=== PATIENT | female | born 1945 | race Caucasian/White ===

== ENCOUNTER 2017-07-01 10:17 | Day surgery (SDC) | payer MEDICARE, SELFPAY ==
[2017-07-01 10:35] VITALS: BP 126/67; PULSE 62; RESP 16; TEMP 36.9; O2SAT 98; BMI 30.2
[2017-07-01] MEDS: Tetracaine 0.5% Ophthalmic Bottle 1 DRP (11:58)
--- NOTE | 2017-07-01 12:33 | PCM.DC.CATCL ---
Allergies/Adverse Reactions: Allergies No Known Allergies Allergy (Verified 06/24/17 11:06) Medications to take at Discharge No Known/Unobtainable [No Known Home Medications] 08/11/16 Cataract Instructions: -Take a pain reliever such as Tylenol, Aspirin or Ibuprofen if needed for eye aching or pain. If this is not enough relief for you pain, call your doctor (or the doctor biodiesel division manager), even at night. -You are scheduled for a follow-up appointment at [facility] the day after surgery. You should have someone drive you. -Transient pain and irritation are due to the incision that was made at the time of surgery and do not indicate any trouble. Our office numbers are . If there is no answer, or if it is after our normal business hours, call your surgeon. My home phone number is: Dr. Ana Maria Powers INSTRUCTIONS FOLLOWING TOPICAL ANESTHETIC CATARACT SURGERY Protect operated eye with glasses or metal shield at all times. Instill one drop of Polytrim (or other antibiotic drop), one drop of Prednisolone and one drop of Acular in the operated eye four times a day (breakfast, lunch, dinner, and bedtime) until the doctor tells you to quit or decrease them. Wait 3-5 minutes between each drop. Please begin these immediately upon arriving at home. if your surgery is in t he afternoon, try to use the drops at least three more times the day of surgery and again the following morning before your appointment. INSTRUCTIONS FOLLOWING RETROBULBAR CATARACT SURGERY Keep the eye patch and metal shield on until you see your surgeon the day after surgery - these will be removed in the office that day. Do not drive while the patch is on your eye. You will be instructed about the use of drops for the operated eye at that visit. Primary Care Physician: Care Physician,No Primary [Primary Care Provider] -
[2017-07-01 12:34] VITALS: BP 126/67; BP 136/63; PULSE 58; RESP 16; TEMP 35.9; O2SAT 100
--- NOTE | 2017-07-01 12:34 | PCM.OP.BLANK ---
Operative Report Date of Procedure: 07/01/17 Preoperative Diagnosis: Cataract Left Eye Postoperative Diagnosis: Same Procedure: Cataract Extraction via phacoemulsification with intraocular lens implant Left Eye Anesthesia: Mac/topical Complications: none Estimated Blood Loss: none Indications for procedure: This is a 72 year old female with history of worsening vision in the left eye secondary to cataract. After discussion of the risks, benefits, and alternatives procedure the patient agreed to proceed with cataract extraction of the left eye. Description of procedure: The patient was brought to the operative room where a time out was performed prior to the start of the procedure. Anesthesia team induced light sedation, and the eye was prepped and draped in the normal sterile fashion for eye surgery. A doreen blade knife was used to create a paracentesis incision. Preservative free lidocaine followed by viscoelastic was introduced into the anterior chamber. A keratome was used to create a clear corneal biplanar incision at the temporal limbus. A cystotome was used to begin the capsulorhexis, which was completed in a continuous curvilinear fashion using the capsulorhexis forceps. BSS on a damon cannula was used to hydrate beneath the lens capsule until the lens was noted to be freely mobile in the capsular bag. Phacoemulsification was used to remove the lens in a divide and conquer technique. Irrigation and aspiration was used to remove the remaining cortical material. The capsular bag was inflated with provisc, and a tecnis PCBOO 20.0 diopter lens was placed in the capsular bag and adjusted using a galo hook. The remaining viscoelastic material was removed. The wounds were hydrated and noted to be watertight with the use of a wexcell sponge. The patient was taken to the recovery room in a stable condition with instructions to follow up in the clinic for the scheduled postoperative visit.
[2017-07-01 12:40] VITALS: BP 121/77; BP 126/67; PULSE 53; RESP 16; O2SAT 96
[2017-07-01 12:45] VITALS: BP 126/67; BP 129/61; PULSE 50; RESP 16; O2SAT 96
[2017-07-01 12:50] VITALS: BP 126/67; BP 131/61; PULSE 50; RESP 16; TEMP 36.1; O2SAT 100
[2017-07-01 13:25] VITALS: BP 126/67
== END 2017-07-01 13:30 | disposition home or self-care (01) ==
LOC: SDC 10:20 → AC 10:22
PROVIDERS: Visit Provider Ophthalmology
PROC: (CPT 66984; principal; 2017-07-01 11:50)
DX: H25.812 Combined forms of age-related cataract, left eye (principal); F17.200 Nicotine dependence, unspecified, uncomplicated
CPT/HCPCS: 66984

== ENCOUNTER 2018-06-08 09:10 | Emergency (ER) | payer MEDICARE, SELFPAY ==
[2018-06-08 09:11] VITALS: BP 156/113; PULSE 72; RESP 18; TEMP 37.2; O2SAT 99; BMI 29.4
--- NOTE | 2018-06-08 09:25 | CT_ITS ---
STUDY: CT BRAIN WITHOUT CONTRAST REASON FOR EXAM: Female, 73 years old. Head injury due to a fall. Nausea and headaches. RADIATION DOSAGE (If Supplied By Facility): CTDIvol = ( 44.99 ) mGy, DLP = ( 779.24 ) mGycm TECHNIQUE: Transaxial CT imaging of the brain was performed without administration of intravenous contrast material. Individualized dose optimization techniques were used for this CT. COMPARISON: None. FINDINGS: Small scalp hematoma overlying the medial right occipital parietal bone posteriorly. Normal calvarium. Normal size ventricles and extra-axial spaces for the patient's age. There are areas of decreased attenuation within the white matter tracts of the supratentorial brain, consistent with microvascular disease changes. Normal basal ganglia and thalami. Normal brainstem. Normal cerebellum. There is no intracranial hemorrhage. There are no findings of an acute ischemic infarction. Atherosclerotic calcification of the cavernous portions of the internal carotid arteries bilaterally. Normal visualized paranasal sinuses. CT/Brain/Head without Contrast IMPRESSION: Chronic involutional changes of the brain. Small scalp hematoma overlying the medial right posterior occipital parietal bone. Electronically Signed: Dionisio Rubi MD at 10:01 EST , Service support ,
--- NOTE | 2018-06-08 09:25 | CT_ITS ---
STUDY: CT CERVICAL SPINE WITHOUT CONTRAST REASON FOR EXAM: Female, 73 years old. History of fall. Headaches. Nausea. RADIATION DOSAGE (If Supplied By Facility): CTDIvol = ( 19.23 ) mGy, DLP = ( 349.40 ) mGycm TECHNIQUE: High resolution transaxial imaging was performed without contrast material. Sagittal and coronal images were reconstructed. Individualized dose optimization techniques were used for this CT. COMPARISON: None FINDINGS: Normal craniovertebral junction. There are degenerative changes of the anterior atlantoaxial articulation. Normal odontoid process. Normal cervical lordosis. Diffuse osteopenia with multiple small rounded lucencies throughout the vertebra and base of the skull. Multiple myeloma should be ruled out. C2-3: Normal endplates. Normal disc height and morphology. Normal central canal and intervertebral neuroforamina. C3-4: Facet joint osteoarthritis and hypertrophy worse on the left side. Uncovertebral arthrosis. Mild to moderate degree of left neural foraminal stenosis. C4-5: Mild degree of disc space narrowing. Spondylosis. Facet joint osteoarthritis and hypertrophy worse on the left side with uncovertebral arthrosis. Bilateral neural foraminal stenosis worse on the left side. C5-6: Mild loss of height of the C5 vertebrae. Marked degree of disc space narrowing. Spondylosis. Uncovertebral arthrosis. Moderate degree of bilateral neural foraminal stenosis is worse on the left side. C6-7: Moderate degree of disc space narrowing. Spondylosis. Uncovertebral arthrosis. Bilateral neural foraminal stenosis. Normal visualized soft tissue structures. CT/Spine Cervical without Contras IMPRESSION: Multilevel degenerative changes, as described above. Diffuse osteopenia with rounded lucencies in multiple vertebrae as described. Multiple myeloma should be ruled out. Loss of height of the C5 vertebrae. Electronically Signed: Dionisio Rubi MD at 10:06 EST , Service support ,
[2018-06-08 10:23] VITALS: O2SAT 98
--- NOTE | 2018-06-08 11:18 | ED.VISSUMM ---
- ER Visit Summary Date of Service: 06/08/18 Chief Complaint: [Head injury] History of Present Illness: The patient is a 73 F [presents to the emergency department with complaint of a head injury that occurred 5 days ago when she slipped on the ice and hit her head on the ground. Patient denies loss of consciousness but states that she saw stars. Patient since that time is had some visual changes 3 days ago she decided to go see the connie scratcher who looked at her eyes and did not note anything significant. Patient also had some intermittent trouble with balance and has had some intermittent nausea. Patient overall just has not felt well. Patient was advised by her connie scratcher to be seen in the emergency department. Patient was recommended to have a CT scan of her brain. Patient also has some discomfort to her neck.] Physical Examination: [HEENT-PERRLA, EOMI. Cranial nerves II through XII grossly intact. TMs clear. Mucous membranes moist. No adenopathy. Patient has a healing posterior right scalp hematoma no bony step-offs noted. C-spine some mild diffuse tenderness on palpation and paraspinal muscular tenderness on palpation bilaterally patient also some tenderness over the sternocleidomastoid bilaterally. Cardiovascular-regular rate and rhythm without murmur or ectopy Lungs-clear to auscultation, chest wall stable without crepitus or subcu emphysema Abdomen-normoactive bowel sounds, soft, nontender, no rebound or rigidity, no peritoneal signs. Neuro rslh-hudzzs-axwi and heel holden testing within normal limits, negative Romberg, negative pronator, fundi benign Extremities-intact ?4, normal range of motion, normal pulses, atraumatic] Test Results: [CT scan of the brain without contrast was unremarkable other than a scalp hematoma. CT scan of the cervical spine showed degenerative disc disease and some lucencies in the vertebrae concerning for possible multiple myeloma.] Emergency Department Course and Treatment: [] Treatment Plan: [Patient case and findings of CT reports were discussed with patient she is understanding of the concern for possibility of multiple myeloma related to the findings on the CT of the cervical spine. Patient will follow up with primary care physician regarding these findings to have further investigation.] Disposition: [Discharged home in stable condition] Impression: [Closed head injury/concussion Cervical strain] This note was generated with Kimbiaation software. It may contain incorrect words, spelling, and punctuation that were not noted in review of the chart prior to signing ED Disposition - Plan for ED Patient: Referrals: Care Physician,No Primary [Primary Care Provider] -
--- NOTE | 2018-06-08 11:21 | ED.DCSUM_ITS ---
- ER Visit Summary Date of Service: 06/08/18 Chief Complaint: [Head injury] History of Present Illness: The patient is a 73 F [presents to the emergency department with complaint of a head injury that occurred 5 days ago when she slipped on the ice and hit her head on the ground. Patient denies loss of con sciousness but states that she saw stars. Patient since that time is had some visual changes 3 days ago she decided to go see the purchaser automotive parts who looked at her eyes and did not note anything significant. Patient also had some intermittent trouble with balance and has had some intermittent nausea. Patient overall just has not felt well. Patient was advised by her purchaser automotive parts to be seen in the emergency department. Patient was recommended to have a CT scan of her brain. Patient also has some discomfort to her neck.] Physical Examination: [HEENT-PERRLACHRISMI. Cranial nerves II through XII grossly intact. TMs clear. Mucous membranes moist. No adenopathy. Patient has a healing posterior right scalp hematoma no bony step-offs noted. C-spine some mild diffuse tenderness on palpation and paraspinal muscular tenderness on palpation bilaterally patient also some tenderness over the sternocleidomastoid bilaterally. Cardiovascular-regular rate and rhythm without murmur or ectopy Lungs-clear to auscultation, chest wall stable without crepitus or subcu emphysema Abdomen-normoactive bowel sounds, soft, nontender, no rebound or rigidity, no peritoneal signs. Neuro tldz-rwzibe-iaiu and heel holden testing within normal limits, negative Romberg, negative pronator, fundi benign Extremities-intact ?4, normal range of motion, normal pulses, atraumatic] Test Results: [CT scan of the brain without contrast was unremarkable other than a scalp hematoma. CT scan of the cervical spine showed degenerative disc disease and some lucencies in the vertebrae concerning for possible multiple myeloma.] Emergency Department Course and Treatment: [] Treatment Plan: [Patient case and findings of CT reports were discussed with patient she is understanding of the concern for possibility of multiple myeloma related to the findings on the CT of the cervical spine. Patient will follow up with primary care physician regarding these findings to have further investigation.] Disposition: [Discharged home in stable condition] Impression: [Closed head injury/concussion Cervical strain] This note was generated with Kabbeeation software. It may contain incorrect words, spelling, and punctuation that were not noted in review of the chart prior to signing ED Disposition - Plan for ED Patient: Referrals: Care Physician,No Primary [Primary Care Provider] -
--- NOTE | 2018-06-08 11:21 | ED.DEP ---
ED Disposition - Plan for ED Patient: Instructions: ED Mechanical Fall, ED Concussion, ED Sprain Strain Neck Referrals: Care Physician,No Primary [Primary Care Provider] - Yanira Lucas MD [STAFF PHYSICIAN] - 3-5 Days
[2018-06-08 11:31] VITALS: BP 165/82; PULSE 71; RESP 18; O2SAT 98
== END 2018-06-08 11:32 | disposition home or self-care (01) ==
LOC: ED 10:14
PROVIDERS: Emergency Provider Emergency Medicine
DX: S06.0X0A Concussion without loss of consciousness, initial encounter (principal); S16.1XXA Strain of muscle, fascia and tendon at neck level, initial encounter; W00.0XXA Fall on same level due to ice and snow, initial encounter; Y93.9 Activity, unspecified; Y92.9 Unspecified place or not applicable; Z72.0 Tobacco use
CPT/HCPCS: 70450; 72125; 99282

== ENCOUNTER 2020-07-13 08:29 | Outpatient (RCR) | payer MEDICARE, SELFPAY ==
[2020-07-09] MEDS: COVID-19 VACC, MRNA(PFIZER)/PF 30 MCG/0.3 ML SYRINGE IM (13:25)
[2020-07-30] MEDS: COVID-19 VACC, MRNA(PFIZER)/PF 30 MCG/0.3 ML SYRINGE IM (13:20)
== END 2020-10-08 23:59 ==
LOC: IMMUN 08:29
PROVIDERS: Referring Provider Family Medicine; Visit Provider Family Medicine
DX: Z23 Encounter for immunization (principal)
CPT/HCPCS: 0001A; 0002A; 91300

== ENCOUNTER → 2022-09-03 | Outpatient (CLI) | payer MEDICARE, SELFPAY ==
--- NOTE | 2022-09-03 10:28 | MRI_ITS ---
INDICATION: Vision loss right eye worse than left, optic nerve edema. EXAMINATION: MR Brain and Face Neck Orbit WO/W Contrast TECHNIQUE: Multiplanar and multisequence MR images of the brain and orbits were obtained without and with gadolinium. IV Contrast Dosage and Agent: 16 mL Clariscan. COMPARISON: None. FINDINGS: BRAIN PARENCHYMA: No acute parenchymal hemorrhage. No evidence of acute infarct. No intracranial mass or mass effect. No vasogenic edema. There is preservation of the sal/white matter interface. Normal sella turcica, pituitary gland, infundibular stalk, optic chiasm and hypothalamus. Normal midline anatomy. Multiple white matter lesions in the periventricular and subcortical white matter. Posterior fossa structures are unremarkable. No abnormal brain parenchymal enhancement. Brain parenchymal White matter lesions do not enhance. The internal auditory canals are well visualized and patent. No mass identified. CSF SPACES: No acute extra-axial hemorrhage. No hydrocephalus. Basal cisterns are patent. No abnormal extra-axial fluid collection. No abnormal extra-axial enhancement identified. VASCULAR SYSTEM: Normal flow voids in the major intracranial circulation. Intracranial vasculature enhances normally. CALVARIUM, SKULL BASE, PARANASAL SINUSES AND MASTOID AIR CELLS: Clear. No expansile changes. ORBITS: Bilateral cataract repair. No mass. Increased T2 signal intensity within the right optic nerve associated with mild volume loss/prominence of the CSF sheath. This is associated with subtle increased enhancement. Subtle T2 hyperintensity changes within the left optic nerve with normal appearance of the optic nerve sheath. There is a short segment of increased enhancement near the globe. MRI/Orbit Face Neck W/WO Contrast IMPRESSION: Findings suggest optic neuritis, asymmetric on the right, consistent with the clinical presentation. Electronically Signed: Colby Tejada MD at 17:20 EDT ,
[2022-09-03 11:01] LABS: CREATININE FINGERSTICK < 0.9 mg/dL (0.55-1.02); EGFR FINGERSTICK > 60.0000 mL/min (>60)
== END | disposition home or self-care (01) ==
PROVIDERS: PCP Internal Medicine; Referring Provider Ophthalmology; Visit Provider Ophthalmology
DX: H47.10 Unspecified papilledema (principal); X58.XXXA Exposure to other specified factors, initial encounter
CPT/HCPCS: 70543; A9575

== ENCOUNTER 2023-06-30 11:34 | Outpatient (CLI) | payer MEDICARE, SELFPAY ==
[2023-06-30 11:59] VITALS: BP 124/64; PULSE 57; RESP 16; TEMP 36.6; O2SAT 99; BMI 27.6
--- NOTE | 2023-06-30 12:05 | RAD_ITS ---
PROCEDURE: Fluoroscopic guided Lumbar Puncture. DATE: June 30, 2023. CLINICAL INDICATION: Unspecified optic neuritis. PHYSICIAN: Dionisio Rubi M.D. MEDICATIONS: 1% lidocaine administered subcutaneously for local anesthesia. ACCESS SITE: Lower posterior back. NEEDLE: 22-gauge spinal needle. SPECIMEN: Approximately 10 mL clear]CSF fluid. FLUOROSCOPY TIME (if supplied): (5:02) minutes/seconds. 135.65 mgy COMPLICATIONS: None immediate. The risks, benefits, and alternatives to the procedure were explained to the patient. The specific risks of bleeding, infection, and neurovascular injury were detailed and accepted. Witnessed informed consent was obtained. The patient was placed on the fluoroscopic table in the prone position. The level for needle entry was determined and marked. The overlying skin was cleaned and prepped in the usual sterile fashion. 2% lidocaine was administered subcutaneously for local anesthesia. Under fluoroscopic guidance a 22-gauge spinal needle was advanced. The thecal sac was entered at the L3- L4 vertebral level. The inner stylet was removed. There was spontaneous flow of clear CSF fluid. The patient was placed in a reversed Trendelenburg position. Approximately 10 mL of cerebrospinal fluid was collected using gravity. The specimen was collected and submitted to the laboratory for further evaluation. The needle was withdrawn,. Hemostasis was achieved and a sterile dressing placed. The patient tolerated the procedure well without any immediate complications. The patient was placed supine with head elevated and returned to the floor in stable condition. RAD/Dx Lumbar Puncture w/IMG Guide IMPRESSION: Successful fluoroscopic-guided lumbar puncture. Electronically Signed: Dionisio Rubi MD at 13:33 EST ,
[2023-06-30] MEDS: Lidocaine 2% (5ml sdv) 5 ML VIAL.MPF INFILT (12:20)
[2023-06-30 13:09] VITALS: BP 150/70; PULSE 60; RESP 16; O2SAT 98
--- NOTE | 2023-06-30 13:21 | CYSPIN_PTH ---
PATIENT: LIDA DEXTER LOC: RAD U#:[id number] AGE/SX: 78/F ROOM: RE06/30/[address]: Dr. Abram Thomas MD : 1945 BED: DIS: 06/30/2023 SPEC #: [id number] RECD: 07/01/23 07:11 STATUS: GRANT RESe #: [id number] GABINO: 06/30/23 13:[address]: Abram Thomas DEPT: CYTOLOGY RECD BY: Lindsay Navarro ENTERED: 07/01/23 07:12 SP TYPE: CYSPIN FL OTHR DR: Dr. Yanira Lucas MD Tissues: Cerebrospinal Fluid Procedures: Pap Stain (control) Special Stain Group II Cytospin Fluid HEADER OPERATION: Not noted PRE-OP DIAGNOSIS: Unspecified optic neuritis TISSUE SUBMITTED: Cerebrospinal fluid for cytology DIAGNOSIS CYTOLOGY Cerebrospinal fluid for cytology (cytospin): Negative for malignant cells. AM:anna 07/01/2023 CYTOLOGY STUDY Slides are reviewed. CYTOLOGY GROSS Received is 3 ml of clear colorless fluid labeled with the patient's name and and designated per the requisition as CSF. Submitted for cytology preparation. / anna 06/30/2023 TC:5 CPT: 51612
[2023-06-30 13:33] LABS: Cytology, Body Fluid / CSF SEE PATHOLOGY REPORT
[2023-06-30 13:53] VITALS: BP 143/72; PULSE 56; RESP 16; O2SAT 99
[2023-06-30 14:02] LABS: Absolute Lymphocyte Count 2.86 X10^3/uL (0.83-4.51); Absolute Neutrophil Count 4.5 X10^3/uL (2.0-7.7); Basophil# 0.04 X10^3/uL; Basophil% 0.5 % (0-1); Eosinophil# 0.02 X10^3/uL; Eosinophils% 0.3 % (0-5); Hematocrit 36.5 % (37-47); Hemoglobin 11.5 g/dL (12.0-15.0); Lymphocyte # 2.86 X10^3/ul (0.83-4.51); Lymphocyte % 37.3 % (19-41); Mean Corp Hgb Conc 31.5 g/dL (32-36); Mean Corpuscular Hgb 28.8 pg (27.0-32.0); Mean Corpuscular Volume 91.5 fL (81-99); Mean Platelet Vol. 8.8 fl (6.2-12.0); Monocyte# 0.25 X10^3/uL; Monocyte% 3.3 % (0-10); NRBC Flagged by Analyzer 0 % (0-5); Neutrophil # 4.47 X10^3/uL (2.7-7.7); Neutrophil % 58.2 % (47-70); Platelet Count 307 K/mm3 (150-450); RBC Distribution Width SD 43.7 fl (35.1-43.9); Red Blood Count 3.99 M/mm3 (4.2-5.4); White Blood Count 7.7 K/mm3 (4.4-11.0)
[2023-06-30 14:07] LABS: Auto B Fluid Analyzer BKGD Ct COUNTS W/IN LIMITS (W/IN LIMITS)
[2023-06-30 14:08] LABS: Appearance CSF (character) CLEAR (Clear); CSF Color COLORLESS (Colorless); Tested Tube # 4
[2023-06-30 14:22] LABS: RBC Count, Spinal Fluid 1 /mm-3 (None seen)
[2023-06-30 14:23] LABS: White Count, CSF 0 /mm-3 (0 - 5)
[2023-06-30 14:37] LABS: Vitamin B12 380 pg/mL (211-911)
[2023-06-30 14:55] LABS: AST(SGOT) 12 U/L (15-37); Alanine Aminotransfer ALT/SGPT 20 U/L (13-56); Albumin, Serum 3.4 g/dL (3.2-5.0); Alkaline Phosphatase 68 U/L (45-117); Anion Gap 2 (5-15); BUN 12 mg/dL (7-18); BUN/Creat Ratio 19.5 RATIO (10-20); Calcium,Total 9.1 mg/dL (8.5-10.1); Chloride 107 mmol/L (98-107); Creatinine, Serum 0.61 mg/dL (0.55-1.02); EST Glomerular Filtration Rate 100 mL/min (>60); Est Glom Filt Rate - Afr Amer 121 mL/min (>60); Estimated Creatinine Clearance 59.34 ml/min; Globulin 3.3 g/dL (2.2-4.2); Glucose 96 mg/dL (74-106); Potassium 3.4 mmol/L (3.5-5.1); Protein, Total 6.7 g/dL (6.4-8.2); Sodium Level 140 mmol/L (136-145); Thyroid Stim Hormone (TSH) 1.39 uIU/mL (0.358-3.74)
[2023-06-30 14:57] LABS: Glucose Spinal Fluid 67 mg/dL (40-75)
[2023-06-30 15:05] LABS: Body Fluid QC Type(s) BF1QC
[2023-06-30 15:13] LABS: Eosinophils,CSF 0 % (None seen); Lymphocytes,CSF 0 % (40 - 80); Monocytes,CSF 0 % (15 - 45); Neutrophils,CSF 0 % (0 - 6)
[2023-07-02 10:07] LABS: Pathologist Review Reviewed
[2023-07-06 00:06] LABS: CSF Albumin 16 mg/dL (10-46); CSF IgG 1.9 mg/dL (0.0-6.7); CSF IgG Index 0.6 (0.0-0.7); CSF:Serum Albumin Index 4 (0-8); IgG Serum 817 mg/dL (586-1602); IgG/Alb Ratio, CSF 0.12 (0.00-0.25); VDRL Cerebrospinal Fluid Non Reactive (Non Rea:<1:1); Vitamin B1, Thiamine 67.8 nmol/L (66.5-200.0)
== END 2023-06-30 23:59 | disposition home or self-care (01) ==
PROVIDERS: PCP Internal Medicine; Referring Provider Psychiatry & Neurology Neurology; Visit Provider Psychiatry & Neurology Neurology
DX: H46.9 Unspecified optic neuritis (principal); R26.9 Unspecified abnormalities of gait and mobility; I10 Essential (primary) hypertension; E55.9 Vitamin D deficiency, unspecified
CPT/HCPCS: 62328; 80053; 82040; 82042; 82607; 82652; 82746; 82784; 82945; 83873; 83916; 84157; 84425; 84443; 85025; 86592; 87070; 87205; 88108; 88313; 89050; 89051

== ENCOUNTER → 2023-07-07 | Outpatient (CLI) | payer MEDICARE, SELFPAY ==
--- OUTSIDE RECORDS SUMMARY | 2023-07-07 13:55 | XMS RPT_ITS | CCD ---
Author Name Unknown Address [address] [place] [address] Organization [facility] Care Team Providers Care Ski Lift Attendant Name Role Phone Tej COPE, Yanira Primary Care Provider TEJ, YANIRA Primary Care Unavailable COLBY BRIGGS Attending Unavailable TEJ, YANIRA Primary Care Unavailable COLBY BRIGGS Referring Unavailable GANTA, YANIRA Primary Care Unavailable MASCICOLBY Referring Unavailable GANTA, YANIRA Primary Care Unavailable GANTA, [facility] Primary Care Unavailable ELY AU Attending Unavailable GANWOJCIECH, [facility] Primary Care Unavailable NUBIA ABDUL Referring Unavailable NUBIA ABDUL Attending Unavailable GANTA, [facility] Primary Care Unavailable TEODORA YORK Referring Unavailable GANTA, [facility] Primary Care Unavailable Yanira Burnham MD Primary Care Provider Medications Current Medications Medication Drug Class(es) Dates Sig (Normalized) Sig (Original) eszopiclone 2 mg oral tablet (3 sources) Start: 02-16-2022 End: 03-18-2022 take 1 tablet by mouth every 30 days at bedtime as needed eszopiclone (LUNESTA) 2 mg Indications: Insomnia, unspecified type Take 1 tablet by mouth at bedtime as needed (insomnia) for up to 30 days. 30 tablet 0 02/16/2022 03/18/2022 Active Completed/Discontinued Medications Medication Drug Class(es) Dates Sig (Normalized) Sig (Original) >Zippered Compression Knee High 30-40 mm custom (20 sources) Start: 12-16-2018 >Zippered Compression Knee High 30-40 mm custom Indications: Chronic venous insufficiency CUSTOM MEASURE FOR KNEE HIGH JER COMPRESSION STOCKINGS, 30-40 MM, WITH ZIPPERS PLEASE. IF UNABLE, PLEASE REFER TO [facility]. DX: EDEMA 1 Each 0 12/16/2018 Active Problems Active Problems Problem Classification Problem Date Documented Da te Episodic/Chronic Conditions associated with dizziness or vertigo (1 source) Dizziness; Translations: [Dizziness and giddiness] Episodic Disorders of lipid metabolism (20 sources) Mixed hyperlipidemia; Translations: [Mixed hyperlipidemia] Onset: 08-05-2020 08-05-2020 Chronic Essential hypertension (8 sources) Essential hypertension; Translations: [Essential (primary) hypertension] Chronic Genitourinary symptoms and ill-defined conditions (1 source) Abnormal urinalysis; Translations: [Unspecified abnormal findings in urine] Episodic Immunizations and screening for infectious disease (1 source) Needs influenza immunization; Translations: [Encounter for immunization] Episodic Inflammation; infection of eye (except that caused by tuberculosis or sexually transmitteddisease) (2 sources) Optic neuritis; Translations: [Unspecified optic neuritis] Onset: 09-15-2022 12-24-2022 Chronic Malaise and fatigue (1 source) Fatigue; Translations: [Other fatigue] Episodic Nutritional deficiencies (20 sources) Vitamin D deficiency; Translations: [Vitamin D deficiency, unspecified] Onset: 08-05-2020 08-05-2020 Chronic Other bone disease and musculoskeletal deformities (2 sources) Lytic lesion of bone on X-ray; Translations: [Disorder of bone, unspecified] Episodic Other connective tissue disease (1 source) Dysfunction of posterior tibial tendon; Translations: [Posterior tibial tendinitis, unspecified leg] 06-29-2023 Episodic Other eye disorders (1 source) Unspecified papilledema; 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] Onset: 09-15-2022 Chronic Other non-traumatic joint disorders (2 sources) Acute ankle pain; Translations: [Pain in right ankle and joints of right foot] 12-21-2022 Episodic Other non-traumatic joint disorders (1 source) Ankle pain; Translations: [Pain in right ankle and joints of right foot] 06-11-2023 Episodic Residual codes; unclassified (1 source) Insomnia; Translations: [Insomnia, unspecified] Episodic Past or Other Problems Problem Classification Problem Date Documented Da te Episodic/Chronic Diabetes mellitus without complication (20 sources) Prediabetes; Translations: [Prediabetes] Onset: 08-05-2020 08-05-2020 Episodic Other bone disease and musculoskeletal deformities (1 source) Disorder of bone, unspecified; Translations: [Lytic bone lesions on xray] Onset: 09-29-2022 Episodic Other diseases of veins and lymphatics (20 sources) Peripheral venous insufficiency; Translations: [Venous insufficiency (chronic) (peripheral)] Onset: 08-05-2020 08-05-2020 Episodic Other non-traumatic joint disorders (1 source) Pain in right ankle and joints of right foot; Translations: [Acute right ankle pain] Onset: 12-21-2022 Episodic Residual codes; unclassified (20 sources) Tobacco user; Translations: [Tobacco use] Onset: 08-05-2020 08-05-2020 Episodic Results Test Name Value Interpretation Reference Range Facil ity Vital Signs Date Time Vital Sign Value Performing Clinician Delvis farris 06-11-2023 11:01-0500 Body height 162.6 cm Ely Denbow PA-C Work Phone: [facility] 06-11-2023 11:01-0500 Body temperature 97.3 [degF] Ely Denbow PA-C Work Phone: [facility] 06-11-2023 11:01-0500 Body weight 78.02 kg Ely Denbow PA-C Work Phone: [facility] 06-11-2023 11:01-0500 Diastolic blood pressure 70 mm[Hg] Ely Denbow PA-C Work Phone: [facility] 06-11-2023 11:01-0500 Heart rate 80 /min Ely Denbow PA-C Work Phone: [facility] 06-11-2023 11:01-0500 Respiratory rate 12 /min Ely Denbow PA-C Work Phone: [facility] 06-11-2023 11:01-0500 SaO2% (BldA) [Mass fraction] 99 % Ely Denbow PA-C Work Phone: [facility] 06-11-2023 11:01-0500 Systolic blood pressure 132 mm[Hg] Ely Denbow PA-C Work Phone: [facility] 12-21-2022 12:37-0400 Body weight 80.74 kg Nubia Older PSYCHIATRIC NURSE PRACTITIONER.IMAGING NURSE Work Phone: [facility] 12-21-2022 12:37-0400 Diastolic blood pressure 70 mm[Hg] Nubia Older PSYCHIATRIC NURSE PRACTITIONER.IMAGING NURSE Work Phone: [facility] 12-21-2022 12:37-0400 Heart rate 74 /min Nubia Older PSYCHIATRIC NURSE PRACTITIONER.IMAGING NURSE Work Phone: [facility] 12-21-2022 12:37-0400 Respiratory rate 16 /min Nubia Older PSYCHIATRIC NURSE PRACTITIONER.IMAGING NURSE Work Phone: [facility] 12-21-2022 12:37-0400 SaO2% (BldA) [Mass fraction] 97 % Nubia Older PSYCHIATRIC NURSE PRACTITIONER.IMAGING NURSE Work Phone: [facility] 12-21-2022 12:37-0400 Systolic blood pressure 118 mm[Hg] Nubia Older PSYCHIATRIC NURSE PRACTITIONER.IMAGING NURSE Work Phone: [facility] 10-14-2022 10:10-0400 Body height 165 cm Colby Masci DO Work Phone: [facility] 10-14-2022 10:10-0400 Body temperature 97.9 [degF] Colby Masci DO Work Phone: [facility] 10-14-2022 10:10-0400 Body weight 81.42 kg Colby Masci DO Work Phone: [facility] 10-14-2022 10:10-0400 Diastolic blood pressure 75 mm[Hg] Colby Masci DO Work Phone: [facility] 10-14-2022 10:10-0400 Heart rate 73 /min Colby Masci DO Work Phone: [facility] 10-14-2022 10:10-0400 SaO2% (BldA) [Mass fraction] 96 % Colby Masci DO Work Phone: [facility] 10-14-2022 10:10-0400 Systolic blood pressure 130 mm[Hg] Colby Masci DO Work Phone: [facility] 03-16-2022 14:06-0500 Body height 165.1 cm Yanira Burnham MD Work Phone: [facility] 03-16-2022 14:06-0500 Body temperature 98.4 [degF] Yanira Burnham MD Work Phone: [facility] 03-16-2022 14:06-0500 Body weight 81.65 kg Yanira Burnham MD Work Phone: [facility] 03-16-2022 14:06-0500 Diastolic blood pressure 56 mm[Hg] Yanira Burnham MD Work Phone: [facility] 03-16-2022 14:06-0500 Heart rate 83 /min Yanira Burnham MD Work Phone: [facility] 03-16-2022 14:06-0500 Respiratory rate 12 /min Yanira Burnham MD Work Phone: [facility] 03-16-2022 14:06-0500 SaO2% (BldA) [Mass fraction] 97 % Yanira Burnham MD Work Phone: [facility] 03-16-2022 14:06-0500 Systolic blood pressure 110 mm[Hg] Yanira Burnham MD Work Phone: [facility] 02-16-2022 13:16-0400 Body weight 81.65 kg Yanira Burnham MD Work Phone: [facility] 02-16-2022 13:16-0400 Diastolic blood pressure 82 mm[Hg] Yanira Burnham MD Work Phone: [facility] 02-16-2022 13:16-0400 Heart rate 60 /min Yanira Burnham MD Work Phone: [facility] 02-16-2022 13:16-0400 SaO2% (BldA) [Mass fraction] 98 % Yanira Burnham MD Work Phone: [facility] 02-16-2022 13:16-0400 Systolic blood pressure 142 mm[Hg] Yanira Burnham MD Work Phone: [facility] 12-16-2021 13:34-0400 Diastolic blood pressure 79 mm[Hg] Mi Nurse Work Phone: [facility] 12-16-2021 13:34-0400 Heart rate 75 /min Mi Nurse Work Phone: [facility] 12-16-2021 13:34-0400 Systolic blood pressure 128 mm[Hg] Mi Nurse Work Phone: [facility] 12-01-2021 13:08-0400 Body weight 80.29 kg Nubia Older PSYCHIATRIC NURSE PRACTITIONER.IMAGING NURSE Work Phone: [facility] 12-01-2021 13:08-0400 Diastolic blood pressure 82 mm[Hg] Nubia Older PSYCHIATRIC NURSE PRACTITIONER.IMAGING NURSE Work Phone: [facility] 12-01-2021 13:08-0400 Heart rate 66 /min Nubia Older PSYCHIATRIC NURSE PRACTITIONER.IMAGING NURSE Work Phone: [facility] 12-01-2021 13:08-0400 Respiratory rate 16 /min Nubia Older PSYCHIATRIC NURSE PRACTITIONER.IMAGING NURSE Work Phone: [facility] 12-01-2021 13:08-0400 Systolic blood pressure 144 mm[Hg] Nubia Older PSYCHIATRIC NURSE PRACTITIONER.IMAGING NURSE Work Phone: [facility] 11-04-2021 15:13-0400 Diastolic blood pressure 70 mm[Hg] Mi Nurse Work Phone: [facility] 11-04-2021 15:13-0400 Heart rate 72 /min Mi Nurse Work Phone: [facility] 11-04-2021 15:13-0400 Systolic blood pressure 128 mm[Hg] Mi Nurse Work Phone: [facility] 10-17-2021 13:55-0400 Body weight 79.83 kg Nubia Older PSYCHIATRIC NURSE PRACTITIONER.IMAGING NURSE Work Phone: [facility] 10-17-2021 13:55-0400 Diastolic blood pressure 80 mm[Hg] Nubia Older PSYCHIATRIC NURSE PRACTITIONER.IMAGING NURSE Work Phone: [facility] 10-17-2021 13:55-0400 Heart rate 66 /min Nubia Older PSYCHIATRIC NURSE PRACTITIONER.IMAGING NURSE Work Phone: [facility] 10-17-2021 13:55-0400 Respiratory rate 16 /min Nubia Abdul PSYCHIATRIC NURSE PRACTITIONER.IMAGING NURSE Work Phone: [facility] 10-17-2021 13:55-0400 Systolic blood pressure 144 mm[Hg] Nubia Abdul PSYCHIATRIC NURSE PRACTITIONER.IMAGING NURSE Work Phone: [facility] Encounters Encounter Date Encounter Type Care Provider Facility Start: 06-29-2023 End: 06-29-2023 Patient encounter procedure Carlo Correa Work Phone: Podiatry Procedures Date Procedure Procedure Detail Performing Clinician Start: 02-16-2022 PFIZER-BIONTECH COVI D-19 BIVALENT BOOSTER VACCINE, AGE 12+ YR Yanira Burnham MD Work Phone: Start: 02-16-2022 INFLUENZA SEASONAL QUADRIVALENT HIGH DOSE AGE 65+ Yanira Burnham MD Work Phone: Plan of Treatment Date Care Activity Detail Author Start: 09-29-2025 DIABETES SCREEN DIABETES SCREEN [facility] Start: 09-29-2025 Diabetes Screening Diabetes Screening [facility] Start: 03-13-2025 DIABETES SCREEN DIABETES SCREEN [facility] Start: 11-18-2024 DIABETES SCREEN DIABETES SCREEN [facility] Start: 06-11-2024 Annual PCP Team Chronic Disease Visit Annual PCP Team Chronic Disease Visit [facility] Start: 03-10-2024 DIABETES SCREEN DIABETES SCREEN [facility] Start: 12-22-2023 ANNUAL PCP TEAM CHRONIC DISEASE VISIT ANNUAL PCP TEAM CHRONIC DISEASE VISIT [facility] Start: 12-22-2023 BP CONTROLLED (<130/80) BP CONTROLLED (<130/80) [facility] Start: 06-11-2023 End: 09-10-2023 CBC W Auto Differential panel - Blood CBC + DIFF Lab Routine Primary hypertension Prediabetes Expected: 06/11/2023, Expires: 09/10/[address] [facility] Work Phone: Immunizations Immunization Date Immunization Notes Care Provider Fa [email or web address] 02-16-2022 COVID-19 booster vaccine, age 12+ yr, bivalent (PFIZER-BIONTECH) Yanira Burnham MD Work Phone: [facility] 02-16-2022 influenza, high-dose , quadrivalent vaccine (FLUZONE HIGH DOSE QUADRIVALENT) Yanira Burnham MD Work Phone: [facility] 02-16-2022 influenza virus vaccine, unspecified formulation Ely Au PA-C Work Phone: [facility] 08-12-2021 COVID-19 vaccine, ag e 12+ yr (PFIZER-BIONTECH - OBRIEN TOP) Yanira Burnham MD Work Phone: [facility] Work Phone: 04-15-2021 influenza, high-dose , quadrivalent vaccine (FLUZONE HIGH DOSE QUADRIVALENT) Yanira Burnham MD Work Phone: [facility] 07-30-2020 COVID-19 vaccine, ag e 12+ yr (PFIZER-BIONTECH - PURPLE TOP) Yanira Burnham MD Work Phone: [facility] Work Phone: 07-09-2020 COVID-19 vaccine, ag e 12+ yr (PFIZER-BIONTECH - PURPLE TOP) Yanira Burnham MD Work Phone: [facility] Work Phone: Payers Date Payer Category Payer Medicare [id number] 2018 Unknown [facility] [employer] [facility] [id number] 2018-Present [phone] [address] [place] [address] [facility] [place] [id number] 2018 Unknown [id number] Social History Date Type Detail Facility Start: 09-17-2018 End: 06-29-2023 Tobacco smoking status TXIS Smokes tobacco daily [facility] Work Phone: History of tobacco use Cigarette Smoker [facility] Work Phone: Start: 09-17-2018 End: 10-14-2022 Cigarettes smoked current (pack per day) - Reported 0.5 [facility] Work Phone: Start: 09-17-2018 End: 06-29-2023 Tobacco use and exposure Smokeless tobacco non-user [facility] Work Phone: Start: 08-12-2021 End: 06-29-2023 Alcohol intake Current drinker of alcohol (finding) [facility] Start: 09-17-2018 History SDOH Alcohol Comment once a week to every other week [facility] Start: 04-11-2019 End: 12-16-2021 Tobacco Comment Pt has been smoking on & off x 30 years. [facility] Start: 1945 Sex Assigned At Not on file [facility] Start: 08-02-2021 End: 03-16-2022 Exposure to SARS-CoV-2 (event) Not sure [facility] Work Phone: Start: 10-07-2021 End: 10-17-2021 Exposure to SARS-CoV-2 (event) Unable to assess [facility] Start: 02-16-2022 End: 10-14-2022 Tobacco use panel [facility] Work Phone: Adult Depression Screening Assessment 2 [facility] Work Phone: Start: 06-29-2023 Tobacco Comment Pt has been sm oking on & off x 30 years.06/29/33- Down to 3-4 a day [facility] Clinical Notes 08-15-2021 to 06-29-2023 Patient InstructionsCarlo Correa - 06/29/2023 11:22 AM Humera Dong RN - 06/29/2023 10:50 AM Ely Pereyra PA-C - 06/11/2023 11:19 AM ESTPatient Instructions Note Date & Type Note Facility 06-29-2023 Instructions Carlo Correa - 06/29/2023 11:30 AM EST Powerstep Original Full length. Can purchase at [employer] and boots,shoes and more here in [place], [employer] in [place] or [place]. Also can find in [place] in [facility]. Powersteps can also be purchased online, starting around $45.00 If you have a metatarsal or dancer pad for your feet apply the pad directly to the insole so you can interchange between your shoes. Find a shoe with a removable insole and take this out and replace with your powerstep insole. Always bring powersteps with you when shopping for shoes so that you can make sure that everything fits well together Recommend asics, new balance or hoka shoes that lace up combined with inserts documented in this encounter [facility] 06-29-2023 History of Present illness Narrative Images from the original note were not included. Consultation requested by Dr. Au for an opinion regarding right ankle pain. My final recommendations will be communicated back to the requesting physician by way of shared Medical record or letter to requesting physician via US mail. Initial Podiatric Office Visit: Chief Complaint: This 78 year old female who presents with chief complaint:right ankle pain HPI Patient presents to clinic for evaluation of right ankle. Patient has right ankle pain that has been present for nearly one year No history of injury. Patient reports pain along the medial ankle. She has treated with ibuprofen and ice and rest and that has helped. She states the pain is better since taking ibuprofen but she still has a burning ache at times. PAIN EVALUATION 06/29/2023 1058 Pain Level: 6 Pain Location: Ankle-Right Description: Sharp;Burning gnawing Frequency: Intermittent Intervention/Comfort measure: Relaxation;Reposition;Medication Hemoglobin A1C (%) Date Value 03/13/2022 5.8 11/18/2021 5.7 03/10/2021 5.5 07/29/2020 5.8 PCP: Yanira Burnham MD PAST MEDICAL HISTORY Diagnosis Date Cataract Closed head injury 06/08/2018 Concussion 06/08/2018 Current Outpatient Medications Medication Sig cholecalciferol (VITAMIN D-3) 50 mcg (2,000 unit) tablet Take 1 tablet by mouth once daily. losartan (COZAAR) 50 mg tablet take 1 tablet by mouth every day hydroCHLOROthiazide 12.5 mg capsule Take 1 capsule by mouth once daily. rosuvastatin (CRESTOR) 10 mg tablet Take 1 tablet by mouth once daily. calcium carbonate (CALTRATE) 600 mg calcium (1,500 mg) tab Take 600 mg by mouth once daily. >Zippered Compression Knee High 30-40 mm custom CUSTOM MEASURE FOR KNEE HIGH JER COMPRESSION STOCKINGS, 30-40 MM, WITH ZIPPERS PLEASE. IF UNABLE, PLEASE REFER TO [facility]. DX: EDEMA celecoxib (CELEBREX) 200 mg capsule Take 1 capsule by mouth once daily. (Patient not taking: Reported on 06/29/2023) No current facility-administered medications for this visit. ALLERGIES No Known Allergies PAST SURGICAL HISTORY Procedure Laterality Date APPENDECTOMY FAMILY HISTORY Problem Relation Age of Onset Kidney Disease Mother dialysis Breast Cancer Mother Thyroid Mother other (Other) Sister half sister Social History Tobacco Use Smoking status: Every Day Packs/day: .25 Types: Cigarettes Smokeless tobacco: Never Tobacco comments: Pt has been smoking on & off x 30 years. 06/29/33- Down to 3-4 a day Vaping Use Vaping Use: Never used Substance Use Topics Alcohol use: Yes Comment: once a week to every other week Drug use: Never REVIEW OF SYSTEMS GENERAL: Negative for Malaise, significant weight loss, fever RESPIRATORY: Negative for cough, wheezing and shortness of breath CARDIOVASCULAR: Negative for chest pain, leg swelling and palpitations GI: Negative for abdominal discomfort, blood in stools or black stools and change in bowel habits : Negative for dysuria, frequency and incontinence MUSCULOSKELETAL: Negative for joint pain or swelling, back pain, and muscle pain. SKIN: Negative for lesions, rash, and itching. HEMATOLOGY/LYMPHOLOGY Negative for prolonged bleeding, bruising easily, and swollen nodes. ENDOCRINE: Negative for cold or heat intolerance, polyuria, polydipsia and goiter. NEURO: negative Physical Exam: Constitutional: Pt is a well developed 78 year old female who is alert, oriented and cooperative Eyes: Following during examination. No redness or drainage. Respiratory: RR normal and nonlabored. Even breathing. No evidence of distress or shortness of breath. Psychology: Patient is engaged during conversation. Normal affect and mood. Does not appear depressed or anxious during encounter. Vascular: Dorsalis pedis and posterior tibial pulses palpable as b/l Capillary Fill time < 5 seconds to digits 1-5 b/l Skin temperature warm to warm proximal to distal b/l Hair growth present to digits Neurological: intact light touch/epicritic sensation b/l intact protective sensation no significant neurological deficits Dermatological: Nails 1-5 b/l appear normal. Webspaces clean and dry 1-4 b/l. Skin appears well hydrated and supple. good color, texture, turgor. No open lesions present. No callosities present. Musculoskeletal/Orthopaedic: Patient has pain to palpation of right medial ankle along posterior tibial tendon Patient unable to perform single or double heel rise Foot type is pronated structurally AJ ROM is full with knee extended and flexed 1st MPJ is full when loaded and no pain or crepitus are noted with ROM. MTJ, STJ are full and free of pain and crepitus. +5/5 muscle strength dorsiflexion, plantarflexion, inversion, eversion b/l Radiographs: 3 views right ankle reviewed June 29, 2023: I have personally reviewed and interpreted these XR myself: no acute fracture ASSESSMENT: (M76.561) Posterior tibial tendon dysfunction (primary encounter diagnosis) PLAN: 1. History and physical examination performed. 2. XR reviewed with patient and interpreted today 3. Discussed pain in right ankle. Suspect flatfoot deformity related to posterior tibial tendon dysfunction 4. Discussed conservative options not limited to more supportive shoes, inserts, afo, boot vs surgery. 5. Will try new shoes that provide better support and will try powerstep inserts. Offered afo but she was not keen on this idea at first. Will try inserts. Carlo Correa DPM Podiatry [address] [facility] [address] Dept: [phone] Dept AMB ROOMING INTAKE FLOWSHEET DATA Pain Pain Level: 6 Pain Location: Ankle-Right Description: Sharp, Burning (gnawing) Frequency: Intermittent Intervention/Comfort measure: Relaxation, Reposition, Medication Patient presents with: Right Ankle - New, Pain Patient presents for right ankle pain that began last August. XR done 12/21/22. Denies injury. States that elevation and ibuprofen help short term. Patient states that it subsided for a time and then she went on a trip where she was on her feet a lot and it has been painful consistently since. Started taking tumeric 5 days ago and that has helped some. documented in this encounter [facility] 06-11-2023 Note HNO ID: [id number] Author: ELY AU PA-C Service: ? Author Type: Physician Protection Officer Type: Progress Notes Filed: 06/11/2023 12:10 Note Text: CC: Patient presents with: F/U 6 months: c/o right ankle pain since x 1year, elevated BP HPI Vanita Gutierrez is a 78 year old female who presents today for R ankle discomfort and elevated BP. Wanted to address these issues before seeing Dr. Thomas (neurology) 06/22 for initial evaluation of optic neuritis/possible MS. LV was with Nubia Abdul CNP on 12/21/22. From prior HPI: Right ankle pain and slight edema starting suddenly a few months ago. Pain is intermittent and varies in intensity. Is described as an aching with occasional sharp pain. Elevating ankle and ibuprofen help but only for short term. Takes ibuprofen every other day. Denies injury, weakness, falls, numbness, or tingling. New as of today: At that time, she put her on an IBU regimen for a few days which seemed to help. At this point in time, R ankle pain is like a burning and gnawing is very limiting- diminished ROM and is hindering her from her normal routine. Issue started in August and was intermittent at first, but seems to be worse at this time. XR was performed in 12/23 and didn't reveal anything significant. HTN: Home BP logs reveal numbers being higher 140s-150/high 80s-low 90s. REVIEW OF SYSTEMS See HPI All other systems negative. PAST MEDICAL HISTORY Diagnosis Date Cataract Closed head injury 06/08/2018 Concussion 06/08/2018 PAST SURGICAL HISTORY Procedure Laterality Date APPENDECTOMY ALLERGIES Patient has no known allergies. MEDICATIONS losartan (COZAAR) 50 mg tablet take 1 tablet by mouth every day hydroCHLOROthiazide 12.5 mg capsule Take 1 capsule by mouth once daily. rosuvastatin (CRESTOR) 10 mg tablet Take 1 tablet by mouth once daily. calcium carbonate (CALTRATE) 600 mg calcium (1,500 mg) tab Take 600 mg by mouth once daily. coenzyme Q10 (COQ-10) 30 mg capsule Take 1 capsule by mouth once daily. (Patient taking differently: Take 30 mg by mouth twice daily.) >Zippered Compression Knee High 30-40 mm custom CUSTOM MEASURE FOR KNEE HIGH JER COMPRESSION STOCKINGS, 30-40 MM, WITH ZIPPERS PLEASE. IF UNABLE, PLEASE REFER TO [facility] AT [facility]. DX: EDEMA FAMILY HISTORY Problem Relation Age of Onset Kidney Disease Mother dialysis Breast Cancer Mother Thyroid Mother other (Other) Sister half sister Social History Tobacco Use Smoking status: Every Day Packs/day: .5 Types: Cigarettes Smokeless tobacco: Never Tobacco comments: Pt has been smoking on AND off x 30 years. Vaping Use Vaping Use: Never used Substance Use Topics Alcohol use: Yes Comment: once a week to every other week Drug use: Never PHYSICAL EXAM BP 132/70 (BP Site: Left Arm, BP Position: Sitting, BP Cuff Size: Large Adult) Pulse 80 Temp 36.3 ?C (97.3 ?F) Resp 12 Ht 162.6 cm (5' 4 ) Wt 78 kg (172 lb) SpO2 99% BMI 29.52 kg/m? General Appearance: well appearing, in no acute distress, alert Psych: mood and affect broad and appropriate Skin: Skin color, texture, turgor normal for age Lungs: Lungs clear to auscultation. No wheezing, rhonchi, rales. Heart: RRR without murmur, gallop, or rubs. Physical Exam Musculoskeletal: Right ankle: Swelling (Mild) present. Tenderness present over the medial malleolus. Right foot: Normal range of motion. Feet: Neurological:No focal neurological deficits. Sensation grossly intact. ASSESSMENT/PLAN: 1. Right ankle pain, unspecified chronicity - ICD9: 719.47, ICD10: M25.571 (primary diagnosis) Ineffective pain control with OTC ibuprofen. Will trial on Celebrex short-term, and refer to podiatry for further evaluation and management, as I feel pes planus could be contributing to her right ankle pain. - CELECOXIB 200 MG CAPSULE - CONSULT TO PODIATRY 2. Primary hypertension - ICD9: 401.9, ICD10: I10 Borderline, but much improved from readings at home-suspect to be partially related to increased pain lately - Continue current medications - Recommend home blood pressure monitoring, to bring results to next visit - Encouraged sodium restriction, DASH or Mediterranean diet - Recommend regular aerobic exercise - CBC + DIFF - COMP METABOLIC PANEL 3. Prediabetes - ICD9: 790.29, ICD10: R73.03 Last A1c 5.8 1-year ago; will recheck - CBC + DIFF - COMP METABOLIC PANEL F/u 3 weeks after seeing ortho for routine appt Prescription instructions reviewed with patient as applicable. Potential red flag symptoms discussed with the patient. Reviewed appropriate action plan to take if red flag symptoms occur. Patient agreeable to treatment plan. Ely Au PA-C [facility] 06-11-2023 History of Present illness Narrative Images from the original note were not included. CC: Patient presents with: F/U 6 months: c/o right ankle pain since x 1year, elevated BP HPI Vanita Gutierrez is a 78 year old female who presents today for R ankle discomfort and elevated BP. Wanted to address these issues before seeing Dr. Thomas (neurology) 06/22 for initial evaluation of optic neuritis/possible MS. LV was with Nubia Abdul CNP on 12/21/22. From prior HPI: Right ankle pain and slight edema starting suddenly a few months ago. Pain is intermittent and varies in intensity. Is described as an aching with occasional sharp pain. Elevating ankle and ibuprofen help but only for short term. Takes ibuprofen every other day. Denies injury, weakness, falls, numbness, or tingling. New as of today: At that time, she put her on an IBU regimen for a few days which seemed to help. At this point in time, R ankle pain is like a burning and gnawing is very limiting- diminished ROM and is hindering her from her normal routine. Issue started in August and was intermittent at first, but seems to be worse at this time. XR was performed in 12/23 and didn't reveal anything significant. HTN: Home BP logs reveal numbers being higher 140s-150/high 80s-low 90s. REVIEW OF SYSTEMS See HPI All other systems negative. PAST MEDICAL HISTORY Diagnosis Date Cataract Closed head injury 06/08/2018 Concussion 06/08/2018 PAST SURGICAL HISTORY Procedure Laterality Date APPENDECTOMY ALLERGIES Patient has no known allergies. MEDICATIONS losartan (COZAAR) 50 mg tablet take 1 tablet by mouth every day hydroCHLOROthiazide 12.5 mg capsule Take 1 capsule by mouth once daily. rosuvastatin (CRESTOR) 10 mg tablet Take 1 tablet by mouth once daily. calcium carbonate (CALTRATE) 600 mg calcium (1,500 mg) tab Take 600 mg by mouth once daily. coenzyme Q10 (COQ-10) 30 mg capsule Take 1 capsule by mouth once daily. (Patient taking differently: Take 30 mg by mouth twice daily.) >Zippered Compression Knee High 30-40 mm custom CUSTOM MEASURE FOR KNEE HIGH JER COMPRESSION STOCKINGS, 30-40 MM, WITH ZIPPERS PLEASE. IF UNABLE, PLEASE REFER TO [facility] AT [facility]. DX: EDEMA FAMILY HISTORY Problem Relation Age of Onset Kidney Disease Mother dialysis Breast Cancer Mother Thyroid Mother other (Other) Sister half sister Social History Tobacco Use Smoking status: Every Day Packs/day: .5 Types: Cigarettes Smokeless tobacco: Never Tobacco comments: Pt has been smoking on & off x 30 years. Vaping Use Vaping Use: Never used Substance Use Topics Alcohol use: Yes Comment: once a week to every other week Drug use: Never PHYSICAL EXAM BP 132/70 (BP Site: Left Arm, BP Position: Sitting, BP Cuff Size: Large Adult) Pulse 80 Temp 36.3 C (97.3 F) Resp 12 Ht 162.6 cm (5' 4 ) Wt 78 kg (172 lb) SpO2 99% BMI 29.52 kg/m General Appearance: well appearing, in no acute distress, alert Psych: mood and affect broad and appropriate Skin: Skin color, texture, turgor normal for age Lungs: Lungs clear to auscultation. No wheezing, rhonchi, rales. Heart: RRR without murmur, gallop, or rubs. Physical Exam Musculoskeletal: Right ankle: Swelling (Mild) present. Tenderness present over the medial malleolus. Right foot: Normal range of motion. Feet: Neurological:No focal neurological deficits. Sensation grossly intact. ASSESSMENT/PLAN: 1. Right ankle pain, unspecified chronicity - ICD9: 719.47, ICD10: M25.571 (primary diagnosis) Ineffective pain control with OTC ibuprofen. Will trial on Celebrex short-term, and refer to podiatry for further evaluation and management, as I feel pes planus could be contributing to her right ankle pain. - CELECOXIB 200 MG CAPSULE - CONSULT TO PODIATRY 2. Primary hypertension - ICD9: 401.9, ICD10: I10 Borderline, but much improved from readings at home-suspect to be partially related to increased pain lately - Continue current medications - Recommend home blood pressure monitoring, to bring results to next visit - Encouraged sodium restriction, DASH or Mediterranean diet - Recommend regular aerobic exercise - CBC + DIFF - COMP METABOLIC PANEL 3. Prediabetes - ICD9: 790.29, ICD10: R73.03 Last A1c 5.8 1-year ago; will recheck - CBC + DIFF - COMP METABOLIC PANEL F/u 3 weeks after seeing ortho for routine appt Prescription instructions reviewed with patient as applicable. Potential red flag symptoms discussed with the patient. Reviewed appropriate action plan to take if red flag symptoms occur. Patient agreeable to treatment plan. Ely Au PA-C documented in this encounter [facility] 12-28-2022 Miscellaneous Notes Left message to notify patient. Mary Peralta LPN No concerns for fracture but if pain is continuing I am consulting her to podiatry for further evaluation. Thank you Nubia Abdul APRN.RONALDO Patient calling and asking for provider to advise on right ankle xray result when able. Thank you. documented in this encounter [facility] 12-28-2022 Miscellaneous Notes Patient calling and requests Neurology referral order and information be faxed to Dr. Thomas's office at [facility]. Faxed as requested. Maryjo Michel RN documented in this encounter [facility] 12-21-2022 Note HNO ID: [id number] Author: hSaneka Tinoco RT(Nikolai) Service: ? Author Type: Horse Trekking Guide Type: Progress Notes Filed: 12/21/2022 1:44 PM Note Text: Radiology Service Progress Note PATIENT NAME: Vanita Gutierrez DATE OF SERVICE: December 21, 2022 TIME: 1:31 PM PATIENT IDENTITY VERIFICATION COMPLETED USING TWO (2) IDENTIFIERS: Name and Date of confirmed by patient verbally. FALL SCREENING: Has the patient had 2 falls in the last year or 1 fall with injury or currently using an Ambulatory Assistive Device (Walker, Cane, Wheelchair, Crutches, etc.)? No PATIENT GENDER DATA: Female. status: : No status: NO. PATIENT RELEVANT IMPLANT DATA REVIEWED: Yes RADIOLOGY DEPARTMENT: General X-ray: Exam(s) Completed: Lower Extremity X-Ray(s): Ankle, Right PERIPHERAL IV DATA: Not applicable SIGNED BY: RT Jacinta(R) December 21, 2022 1:31 PM [facility] 12-21-2022 Note HNO ID: [id number] Author: Nubia Abdul APRN.IMAGING NURSE Service: ? Author Type: Nurse Practitioner Type: Progress Notes Filed: 12/24/2022 4:54 PM Note Text: CC: Patient presents with: Recheck: 6 month follow up, review labs HPI Vanita Gutierrez is a 77 year old female who presents today for routine follow up but with a few concerns Optic Neuritis: Unable to drive a distance and needs a local neurologist. Would like consult sent to Dr. Thomas. Her optmetrist Dr. Powers identified this and did an MRI. Vision with floaters, flashing lights, and incorrect colors, saw everything as blue. Has improved and colors are correct and flashing light sensation is improved as well. HTN and HLD: Ms. Gutierrez indicates that she is feeling well and denies any symptoms referable to elevated blood pressure. Specifically denies headache, chest pain, palpitations, dyspnea, and peripheral edema. Patient denies any side effects of her medication(s) and is compliant with their regimen. She does check BP's away from this office with average BP's in the 130s/70s range which she checks prior to taking her antihypertensive medications. Vanita denies regular aerobic exercise but stays active gardening and cooking. She watches her diet for sodium, low fat and low cholesterol most of the time. Last 3 Encounter BP Readings: Date: BP: 12/21/2022 118/70 10/14/2022 130/75 03/16/2022 110/56 Right ankle pain and slight edema starting suddenly a few months ago. Pain is intermittent and varies in intensity. Is described as an aching with occasional sharp pain. Elevating ankle and ibuprofen help but only for short term. Takes ibuprofen every other day. Denies injury, weakness, falls, numbness, or tingling. REVIEW OF SYSTEMS General: no fevers, no chills, no night sweats, no recurrent infections, no change in appetite, no change in energy, and no significant changes in weight Respiratory: no cough, no wheezing, no shortness of breath, no hemoptysis Cardiovascular: no chest pain, no chest pressure, no palpitations, and no swelling Neurologic: No headache, weakness, numbness, tingling, dizziness, memory loss, syncope. PAST MEDICAL HISTORY Diagnosis Date Cataract Closed head injury 06/08/2018 Concussion 06/08/2018 PAST SURGICAL HISTORY Procedure Laterality Date APPENDECTOMY ALLERGIES Patient has no known allergies. MEDICATIONS rosuvastatin (CRESTOR) 10 mg tablet Take 1 tablet by mouth once daily. losartan (COZAAR) 50 mg tablet Take 1 tablet by mouth once daily. hydroCHLOROthiazide (HYDRODIURIL, ESIDRIX) 12.5 mg capsule Take 1 capsule by mouth once daily. coenzyme Q10 (COQ-10) 30 mg capsule Take 1 capsule by mouth once daily. (Patient taking differently: Take 30 mg by mouth twice daily.) calcium carbonate (CALTRATE) 600 mg calcium (1,500 mg) tab Take 600 mg by mouth once daily. >Zippered Compression Knee High 30-40 mm custom CUSTOM MEASURE FOR KNEE HIGH JER COMPRESSION STOCKINGS, 30-40 MM, WITH ZIPPERS PLEASE. IF UNABLE, PLEASE REFER TO [facility] AT [facility]. DX: EDEMA FAMILY HISTORY Problem Relation Age of Onset Kidney Disease Mother dialysis Breast Cancer Mother Thyroid Mother other (Other) Sister half sister Social History Tobacco Use Smoking status: Every Day Packs/day: .5 Types: Cigarettes Smokeless tobacco: Never Tobacco comments: Pt has been smoking on AND off x 30 years. Vaping Use Vaping Use: Never used Substance Use Topics Alcohol use: Yes Comment: once a week to every other week Drug use: Never PHYSICAL EXAM BP 118/70 Pulse 74 Resp 16 Wt 80.7 kg (178 lb) SpO2 97% BMI 29.66 kg/m? General Appearance: well appearing, in no acute distress, alert Pysch: mood and affect broad and appropriate Skin: Skin color, texture, turgor normal for age; Eyes: conjunctiva pink and moist, no icterus, sclera white, non-injected Lungs: Lungs clear to auscultation. No wheezing, rhonchi, rales. Heart: RRR without murmur, gallop, or rubs. No ectopy BLE Extremities: No deformities, edema, skin discoloration, clubbing or cyanosis. Good capillary refill. Right ankle with no edema, redness or decreased ROM. Some pain reported with palpation of ligaments above medial part of ankle. Did note that foot wear was a small sandal with thin sole and no support to foot or ankle. Health maintenance reviewed with patient: PNEUMOCOCCAL: 65+(1 - PCV) Never done BP CONTROLLED (<130/80) Never done DTAP,TDAP,TD(1 - Tdap) Never done SHINGRIX VACCINE(1 of 2) Never done ADVANCE DIRECTIVE DISCUSSION due on 05/03/2022 DEPRESSION ASSESSMENT due on 05/03/2022 COVID-19 VACCINE(5 - Pfizer series) due on 06/19/2022 INFLUENZA(1) due on 01/01/2023 ANNUAL PCP TEAM CHRONIC DISEASE VISIT due on 12/22/2023 DIABETES SCREEN due on 09/29/2025 BONE DENSITY Completed HEPATITIS C SCREENING Completed MAMMOGRAM Discontinued DATA REVIEWED: Most recent labs ASSESSMENT/PLAN: 1. (more content not included)... [facility] 12-21-2022 Instructions Nubia Abdul APRN.CNP - 12/21/2022 1:09 PM EDT Wear supportive shoes can wear an ankle compression brace if needed. Elevate leg and ice as able Take motrin 3 times a day for the next 3-5 days Call if no improvement. documented in this encounter [facility] 12-21-2022 History of Present illness Narrative CC: Patient presents with: Recheck: 6 month follow up, review labs HPI Vanita Gutierrez is a 77 year old female who presents today for routine follow up but with a few concerns Optic Neuritis: Unable to drive a distance and needs a local neurologist. Would like consult sent to Dr. Thomas. Her optmetrist Dr. Powers identified this and did an MRI. Vision with floaters, flashing lights, and incorrect colors, saw everything as blue. Has improved and colors are correct and flashing light sensation is improved as well. HTN and HLD: Ms. Gutierrez indicates that she is feeling well and denies any symptoms referable to elevated blood pressure. Specifically denies headache, chest pain, palpitations, dyspnea, and peripheral edema. Patient denies any side effects of her medication(s) and is compliant with their regimen. She does check BP's away from this office with average BP's in the 130s/70s range which she checks prior to taking her antihypertensive medications. Vanita denies regular aerobic exercise but stays active gardening and cooking. She watches her diet for sodium, low fat and low cholesterol most of the time. Last 3 Encounter BP Readings: Date: BP: 12/21/2022 118/70 10/14/2022 130/75 03/16/2022 110/56 Right ankle pain and slight edema starting suddenly a few months ago. Pain is intermittent and varies in intensity. Is described as an aching with occasional sharp pain. Elevating ankle and ibuprofen help but only for short term. Takes ibuprofen every other day. Denies injury, weakness, falls, numbness, or tingling. REVIEW OF SYSTEMS General: no fevers, no chills, no night sweats, no recurrent infections, no change in appetite, no change in energy, and no significant changes in weight Respiratory: no cough, no wheezing, no shortness of breath, no hemoptysis Cardiovascular: no chest pain, no chest pressure, no palpitations, and no swelling Neurologic: No headache, weakness, numbness, tingling, dizziness, memory loss, syncope. PAST MEDICAL HISTORY Diagnosis Date Cataract Closed head injury 06/08/2018 Concussion 06/08/2018 PAST SURGICAL HISTORY Procedure Laterality Date APPENDECTOMY ALLERGIES Patient has no known allergies. MEDICATIONS rosuvastatin (CRESTOR) 10 mg tablet Take 1 tablet by mouth once daily. losartan (COZAAR) 50 mg tablet Take 1 tablet by mouth once daily. hydroCHLOROthiazide (HYDRODIURIL, ESIDRIX) 12.5 mg capsule Take 1 capsule by mouth once daily. coenzyme Q10 (COQ-10) 30 mg capsule Take 1 capsule by mouth once daily. (Patient taking differently: Take 30 mg by mouth twice daily.) calcium carbonate (CALTRATE) 600 mg calcium (1,500 mg) tab Take 600 mg by mouth once daily. >Zippered Compression Knee High 30-40 mm custom CUSTOM MEASURE FOR KNEE HIGH JER COMPRESSION STOCKINGS, 30-40 MM, WITH ZIPPERS PLEASE. IF UNABLE, PLEASE REFER TO [facility] AT [facility]. DX: EDEMA FAMILY HISTORY Problem Relation Age of Onset Kidney Disease Mother dialysis Breast Cancer Mother Thyroid Mother other (Other) Sister half sister Social History Tobacco Use Smoking status: Every Day Packs/day: .5 Types: Cigarettes Smokeless tobacco: Never Tobacco comments: Pt has been smoking on & off x 30 years. Vaping Use Vaping Use: Never used Substance Use Topics Alcohol use: Yes Comment: once a week to every other week Drug use: Never PHYSICAL EXAM BP 118/70 Pulse 74 Resp 16 Wt 80.7 kg (178 lb) SpO2 97% BMI 29.66 kg/m General Appearance: well appearing, in no acute distress, alert Pysch: mood and affect broad and appropriate Skin: Skin color, texture, turgor normal for age; Eyes: conjunctiva pink and moist, no icterus, sclera white, non-injected Lungs: Lungs clear to auscultation. No wheezing, rhonchi, rales. Heart: RRR without murmur, gallop, or rubs. No ectopy BLE Extremities: No deformities, edema, skin discoloration, clubbing or cyanosis. Good capillary refill. Right ankle with no edema, redness or decreased ROM. Some pain reported with palpation of ligaments above medial part of ankle. Did note that foot wear was a small sandal with thin sole and no support to foot or ankle. Health maintenance reviewed with patient: PNEUMOCOCCAL: 65+(1 - PCV) Never done BP CONTROLLED (<130/80) Never done DTAP,TDAP,TD(1 - Tdap) Never done SHINGRIX VACCINE(1 of 2) Never done ADVANCE DIRECTIVE DISCUSSION due on 05/03/2022 DEPRESSION ASSESSMENT due on 05/03/2022 COVID-19 VACCINE(5 - Pfizer series) due on 06/19/2022 INFLUENZA(1) due on 01/01/2023 ANNUAL PCP TEAM CHRONIC DISEASE VISIT due on 12/22/2023 DIABETES SCREEN due on 09/29/2025 BONE DENSITY Completed HEPATITIS C SCREENING Completed MAMMOGRAM Discontinued DATA REVIEWED: Most recent labs ASSESSMENT/PLAN: 1. Primary hypertension - ICD9: 401.9, ICD10: I10 (primary diagnosis) - Controlled - Continue current medications - Recommend home blood pressure monitoring, to bring results to next visit - Encouraged sodium restriction, DASH or Mediterranean diet - Recommend regular aerobic exercise - HYDROCHLOROTHIAZIDE 12.5 MG CAPSULE 2. Optic neuritis - ICD9: 377.30, ICD10: H46.9 - CONSULT TO NEUROLOGY 3. Acute right ankle pain - ICD9: 719.47, 338.19, ICD10: M25.571 - Wear supportive shoes can wear an ankle compression brace if needed. - Elevate leg and ice as able - Take motrin 200-400mg 3 times a day for the next 3-5 days - Call if no improvement. - XR ANKLE GENERAL 3V AP/LAT/OBL RIGHT 4. Mixed hyperlipidemia - ICD9: 272.2, ICD10: E78.2 - Controlled - Continue current medications - Counseled on healthy diet and regular exercise - Discussed need for and benefit of weight loss. BMI 29.66 kg/(m^2) Prescription instructions reviewed with patient as applicable. Potential red flag symptoms discussed with the patient. Reviewed appropriate action plan to take if red flag symptoms occur. Patient agreeable to treatment plan. Nubia Abdul APRN.CNP documented in this encounter [facility] 11-17-2022 Miscellaneous Notes TC to pt to let her know we need to cancel her appointment next week with [facility], as provider does not seen this condition. Let her know she needs to see the [facility]. Pt states she does not want to drive to the [employer]. States there is a provider at the hospital who sees this condition. Maame Del Real LPN documented in this encounter [facility] 11-10-2022 Miscellaneous Notes Left a detailed message that lab order is in. Gabby DAMICO Patient is scheduled for 12/21/22 with PCp care team please place fasting lab orders. Please notify the patient once orders are placed. Appointment with PCP team with fasting lipids. Patient has been identified by name and date of : Yes, Provider Ganta Date 11/06/22 Time 8:44am Patient phones for refill(s): Patient is going to be OUT of medication Requested Prescriptions Refused Prescriptions Disp Refills rosuvastatin (CRESTOR) 10 mg tablet [Pharmacy Med Name: ROSUVASTATIN CALCIUM 10 MG TAB] 90 tablet 1 Sig: TAKE 1 TABLET BY MOUTH EVERY DAY Refused By: ELY COLBERT Reason for Refusal: Patient should contact Prescriber first Date of last office visit in primary care: 02/16/22 Last 2 Encounter Wt Readings: Date: Wt: 10/14/2022 81.4 kg (179 lb 8 oz) 03/16/2022 81.6 kg (180 lb) Previous labs/tests for medication: Cholesterol: HDL Cholesterol (mg/dL) Date Value 11/18/2021 63 03/10/2021 74 LDL Cholesterol (mg/dL) Date Value 11/18/2021 90 03/10/2021 113 ALT (U/L) Date Value 09/29/2022 11 03/10/2021 10 Non HDL Cholesterol (mg/dL) Date Value 11/18/2021 105 03/10/2021 132 Please advise. Thank you. Savana Saucedo LPN Patient is calling in regarding getting this medication as she is going to be OUT of medication. It was requested by pharmacy and looks like refused but I am not sure why this has been refused? Patient has been seen and has had lab work done. [facility] Cami Kinney documented in this encounter [facility] 10-19-2022 Miscellaneous Notes Spoke with pt.given information, also faxed copy of this notation to dr. Powers, and mailed copy of this note to pt. As directed. Carey Vences LPN Patient left without being seen earlier this week. Can let her know however that the lab work and urine test showed no evidence of a monoclonal protein whatsoever. The MRI findings are not related to a blood disorder. I will copy her PCP on this note. Please fax a copy of this note to Dr. Ana Maria Powers. Patient does not have to follow-up here. Was evaluated for visual loss right eye and optic nerve edema was observed on exam. MRI Brain and orbits at [facility] 09/03/2022: BRAIN PARENCHYMA: No acute parenchymal hemorrhage. No evidence of acute infarct. No intracranial mass or mass effect. No vasogenic edema. There is preservation of the sal/white matter interface. Normal sella turcica, pituitary gland, infundibular stalk, optic chiasm and hypothalamus. Normal midline anatomy. Multiple white matter lesions in the periventricular and subcortical white matter. Posterior fossa structures are unremarkable. No abnormal brain parenchymal enhancement. Brain parenchymal White matter lesions do not enhance. The internal auditory canals are well visualized and patent. No mass identified. CSF SPACES: No acute extra-axial hemorrhage. No hydrocephalus. Basal cisterns are patent. No abnormal extra-axial fluid collection. No abnormal extra-axial enhancement identified. VASCULAR SYSTEM: Normal flow voids in the major intracranial circulation. Intracranial vasculature enhances normally. CALVARIUM, SKULL BASE, PARANASAL SINUSES AND MASTOID AIR CELLS: Clear. No expansile changes. ORBITS: Bilateral cataract repair. No mass. Increased T2 signal intensity within the right optic nerve associated with mild volume loss/prominence of the CSF sheath. This is associated with subtle increased enhancement. Subtle T2 hyperintensity changes within the left optic nerve with normal appearance of the optic nerve sheath. There is a short segment of increased enhancement near the globe. IMPRESSION: Findings suggest optic neuritis, asymmetric on the right, consistent with the clinical presentation. LABS: Component Latest Ref Rng & Units 09/29/2022 WBC 3.70 - 11.00 k/uL 8.97 RBC 3.90 - 5.20 m/uL 4.15 Hemoglobin 11.5 - 15.5 g/dL 12.4 Hematocrit 36.0 - 46.0 % 37.0 MCV 80.0 - 100.0 fL 89.2 MCH 26.0 - 34.0 pg 29.9 MCHC 30.5 - 36.0 g/dL 33.5 RDW-CV 11.5 - 15.0 % 13.1 Platelet Count 150 - 400 k/uL 323 MPV 9.0 - 12.7 fL 8.6 (L) Neut% % 63.5 Abs Neut (ANC) 1.45 - 7.50 k/uL 5.69 Lymph% % 32.6 Abs Lymph 1.00 - 4.00 k/uL 2.92 [place]% % 3.0 Abs [place] <0.87 k/uL 0.27 Eosin% % 0.3 Abs Eosin <0.46 k/uL 0.03 Baso% % 0.4 Abs Baso <0.11 k/uL 0.04 Immature Gran % % 0.2 IMMATURE GRANS (ABS) <0.10 k/uL <0.03 NRBC /100 WBC 0.0 Absolute nRBC <0.01 k/uL <0.01 DTYPE Auto Protein, Total 6.3 - 8.0 g/dL 6.9 Albumin 3.9 - 4.9 g/dL 4.4 Calcium 8.5 - 10.2 mg/dL 9.5 Bilirubin, Total 0.2 - 1.3 mg/dL 0.7 Alkaline Phosphatase 34 - 123 U/L 75 AST 13 - 35 U/L 14 ALT 7 - 38 U/L 11 Glucose 74 - 99 mg/dL 124 (H) BUN 7 - 21 mg/dL 20 Creatinine 0.58 - 0.96 mg/dL 0.79 Sodium 136 - 144 mmol/L 137 Potassium 3.7 - 5.1 mmol/L 3.7 Chloride 97 - 105 mmol/L 101 CO2 22 - 30 mmol/L 28 Anion Gap 9 - 18 mmol/L 8 (L) eGFR >=60 mL/min/1.73m 77 Component Latest Ref Rng & Units 09/29/2022 Albumin 3.43 - 5.41 g/dL 4.14 Alpha 1 Globulin 0.18 - 0.43 g/dL 0.33 Alpha 2 Globulin 0.42 - 0.98 g/dL 0.62 Beta Globulin 0.61 - 1.17 g/dL 0.66 Gamma Globulin 0.53 - 1.51 g/dL 0.76 Interpretation (Prot Electro) No definitive M protein is identified on protein electrophoresis. No definitive M protein is identified on protein electrophoresis. M-Protein Location M-Protein Concentration <=0.00 g/dL 0.00 SPE Staff Review Reviewed by Nelsy Weir MD IgG 700 - 1,600 mg/dL 858 IgA 70 - 400 mg/dL 67 (L) IgM 40 - 230 mg/dL 120 Ayden Free, Serum 3.3 - 19.4 mg/L 19.4 Lambda Free, Serum 5.7 - 26.3 mg/L 11.4 K/L Ratio, Serum 0.26 - 1.65 1.70 (H) Component Latest Ref Rng & Units 09/29/2022 Albumin %, 24 Hr Urine % 48.86 Alpha 1 Globulin %, 24 Hr Ur % 6.06 Alpha 2 Globulin %, 24 Hr Ur % 21.98 Beta Globulin %, 24 Hr Ur % 15.85 Gamma Globulin %, 24 Hr Ur % 7.25 Interpretation (UEPG24) No definitive M protein is identified on protein electrophoresis. No definitive M protein is identified on protein electrophoresis. M Parminder Quant, 24 Hr Urine g/24hr 0.00 Staff Review (UEPG24) Reviewed by Nelsy Weir MD Component Latest Ref Rng & Units 09/29/2022 Result (UMPA) No M protein is identified. No M protein is identified. Staff Review (UMPA) Reviewed by MD Colby Courtney DO documented in this encounter [facility] 10-14-2022 Note HNO ID: [id number] Author: Colby Briggs DO Service: ? Author Type: Physician Type: Progress Notes Filed: 10/16/2022 5:53 PM Note Text: Patient left without being seen. Colby Briggs DO [facility] 10-14-2022 History of Present illness Narrative Patient left without being seen. Colby Briggs DO documented in this encounter [facility] 10-01-2022 Note HNO ID: [id number] Author: Jacqueline Grace Service: ? Author Type: ? Type: Progress Notes Filed: 10/01/2022 12:28 PM Note Text: POPULATION HEALTH NAVIGATION OUTREACH Action/I Past due for wellness visit. LVM Patient Identified by Name and : NO Outreach Outcome/Action Unable to reach patient: Left message Did you use a PCP flex slot to schedule this appointment? N/A Reason for Outreach Care Gap or Scheduling/Wellness visits Payer: Payor: [employer] / Plan: [employer] HMO / Product Type: HMO / Care Gap Reviewed:: Annual Wellness visit Reminder: Reminder note to check Health Maintenance for items below Health Maintenance items due: PNEUMOCOCCAL: 65+(1 - PCV) Never done DTAP,TDAP,TD(1 - Tdap) Never done SHINGRIX VACCINE(1 of 2) Never done ADVANCE DIRECTIVE DISCUSSION due on 05/03/2022 DEPRESSION ASSESSMENT due on 05/03/2022 Navigation Signature: Jacqueline Grace October 01, 2022 12:23 PM [facility] 10-01-2022 Note Patient Outreach (SALVATORE CASTRO) ISACCVANITA Rodríguez ([id number]) 1945 F Date Time Provider Department 10/01/22 JACQUELINE GRACE ([facility]) JAKUB During your visit today, we recorded the following information about you: Jacqueline Sanjay 10/01/2022 12:28 PM Signed POPULATION HEALTH NAVIGATION OUTREACH Action/ Past due for wellness visit. LVM Patient Identified by Name and : NO Outreach Outcome/Action Unable to reach patient: Left message Did you use a PCP flex slot to schedule this appointment? N/A Reason for Outreach Care Gap or Scheduling/Wellness visits Payer: Payor: [employer] / Plan: [employer] HMO / Product Type: HMO / Care Gap Reviewed:: Annual Wellness visit Reminder: Reminder note to check Health Maintenance for items below Health Maintenance items due: PNEUMOCOCCAL: 65+(1 - PCV) Never done DTAP,TDAP,TD(1 - Tdap) Never done SHINGRIX VACCINE(1 of 2) Never done ADVANCE DIRECTIVE DISCUSSION due on 05/03/2022 DEPRESSION ASSESSMENT due on 05/03/2022 Navigation Signature: Jacqueline Grace October 01, 2022 12:23 PM Allergies As of Date: 10/01/2022 (No Known Allergies) Date Reviewed: 03/16/2022 Reviewed by: Mary Peralta LPN - Fully Assessed Reason for Visit: Population Health Navigation Outreach [3910] Cmt: Kinza care gap Prescriptions as of 10/01/2022 - losartan (COZAAR) 50 mg tablet Take 1 tablet by mouth once daily. - rosuvastatin (CRESTOR) 10 mg tablet Take 1 tablet by mouth once daily. - hydroCHLOROthiazide (HYDRODIURIL, ESIDRIX) 12.5 mg capsule Take 1 capsule by mouth once daily. - coenzyme Q10 (COQ-10) 30 mg capsule Take 1 capsule by mouth once daily. - calcium carbonate (CALTRATE) 600 mg calcium (1,500 mg) tab Take 0.5 tablets by mouth twice daily. - >Zippered Compression Knee High 30-40 mm custom CUSTOM MEASURE FOR KNEE HIGH JER COMPRESSION STOCKINGS, 30-40 MM, WITH ZIPPERS PLEASE. IF UNABLE, PLEASE REFER TO [facility] AT [facility]. DX: EDEMA Problem List As Of Date 10/01/2022 Noted Resolved Mixed hyperlipidemia [E78.2] 08/05/2020 Chronic venous insufficiency [I87.2] 08/05/2020 Tobacco abuse disorder [Z72.0] 08/05/2020 Vitamin D deficiency [E55.9] 08/05/2020 Prediabetes [R73.03] 08/05/2020 Encounter Status:Closed by JACQUELINE GRACE on 10/01/22 [facility] 10-01-2022 History of Present illness Narrative POPULATION HEALTH NAVIGATION OUTREACH Action/ Past due for wellness visit. LVM Patient Identified by Name and : NO Outreach Outcome/Action Unable to reach patient: Left message Did you use a PCP flex slot to schedule this appointment? N/A Reason for Outreach Care Gap or Scheduling/Wellness visits Payer: Payor: [employer] / Plan: [employer] HMO / Product Type: HMO / Care Gap Reviewed:: Annual Wellness visit Reminder: Reminder note to check Health Maintenance for items below Health Maintenance items due: PNEUMOCOCCAL: 65+(1 - PCV) Never done DTAP,TDAP,TD(1 - Tdap) Never done SHINGRIX VACCINE(1 of 2) Never done ADVANCE DIRECTIVE DISCUSSION due on 05/03/2022 DEPRESSION ASSESSMENT due on 05/03/2022 Navigation Signature: Jacqueline Grace October 01, 2022 12:23 PM documented in this encounter [facility] 09-29-2022 Note HNO ID: [id number] Author: Shaneka Tinoco RT(R) Service: ? Author Type: Horse Trekking Guide Type: Progress Notes Filed: 09/29/2022 11:56 AM Note Text: Radiology Service Progress Note PATIENT NAME: Vanita Gutierrez DATE OF SERVICE: September 29, 2022 TIME: 11:33 AM PATIENT IDENTITY VERIFICATION COMPLETED USING TWO (2) IDENTIFIERS: Name and Date of confirmed by patient verbally. FALL SCREENING: Has the patient had 2 falls in the last year or 1 fall with injury or currently using an Ambulatory Assistive Device (Walker, Cane, Wheelchair, Crutches, etc.)? No PATIENT GENDER DATA: Female. status: : No status: NO. PATIENT RELEVANT IMPLANT DATA REVIEWED: Yes RADIOLOGY DEPARTMENT: General X-ray: Exam(s) Completed: Bone Survey PERIPHERAL IV DATA: Not applicable SIGNED BY: RT Jacinta(R) September 29, 2022 11:33 AM [facility] 09-11-2022 Miscellaneous Notes Spoke with patient and scheduled appts LM on self-identified voicemail for the patient to return the call and schedule some appointments. When patient calls, please relay message below and schedule labs/xray/office visit. Once scheduled, document and close this note. Susu James Please contact her tomorrow to let her know that based on the discussion Dr. Powers and I had, I need to repeat the work-up for possible monoclonal protein. So she can have the lab work and x-ray as well as the 24-hour urine test then office visit with me about a week later. Dr. Powers ordered an MRI of the brain on this patient due to a complaint of decreased color vision in right eye. Patient was found to have optic neuritis. Dr. Powers is seeing the patient this afternoon to discuss this with her. Please contact her tomorrow to let her know that based on the discussion Dr. Powers and I had, I need to repeat the work-up for possible monoclonal protein. So she can have the lab work and x-ray as well as the 24-hour urine test then office visit with me about a week later. Colyb Briggs DO Received call from Dr. Powers's office - [facility]. Dr. Powers would like to speak with Dr. Briggs regarding patient before 3:30 today if possible. Patient is scheduled for an office visit there at 3:30. Informed office that patient has not been here since 04/[address] Hi documented in this encounter [facility] 09-01-2022 Miscellaneous Notes Patient has been identified by name and date of : Yes Requested Prescriptions Pending Prescriptions Disp Refills losartan (COZAAR) 50 mg tablet 90 tablet 3 Sig: Take 1 tablet by mouth once daily. RX INSTRUCTIONS: Patient aware RX will be sent to pharmacy. No need to notify patient. Aysha Borrego [employer] documented in this encounter [facility] 05-28-2022 Miscellaneous Notes Patient has been identified by name and date of : Yes Requested Prescriptions Pending Prescriptions Disp Refills losartan (COZAAR) 50 mg tablet 90 tablet 3 Sig: Take 1 tablet by mouth once daily. ARCELIA-03/16/22 Labs-03/13/22 NOV-09/15/22 med filled 12/01/21 RX INSTRUCTIONS: Patient aware RX will be sent to pharmacy. No need to notify patient. Cami Dillon Pss documented in this encounter [facility] 05-05-2022 Miscellaneous Notes Patient has been identified by name and date of : Yes Requested Prescriptions Pending Prescriptions Disp Refills rosuvastatin (CRESTOR) 10 mg tablet 90 tablet 1 Sig: Take 1 tablet by mouth once daily. ARCELIA-03/16/22 Labs-03/13/22 NOV-09/15/22 med filled 08/15/21 RX INSTRUCTIONS: Patient aware RX will be sent to pharmacy. No need to notify patient. Fely Brandt Pss documented in this encounter [facility] 03-16-2022 History of Present illness Narrative Reason for Visit Patient presents with: Follow Up: elevated blood pressure and meds Vanita Gutierrez is a 76 year old female who presents here today for Above Complaints.. Health Maintenance PNEUMOCOCCAL: 65+(1 - PCV) BP CONTROLLED (<130/80) DTAP,TDAP,TD(1 - Tdap) SHINGRIX VACCINE(1 of 2) HPI Kept a log of bp and her numbers looked almost getting back to normal. Her bp at home too were on the coming down trend Last visit we added hctz to her losartan. No swelling in the legs and denies dizziness, still a little off balance but over all those were improved symptoms. Her urine is dark recently. Patient notes she picked up the sleeping pills but never took them, so she is not on the lunesta. Patient notes she will be writing down the numbers like before. No problem-specific Assessment & Plan notes found for this encounter. PAST MEDICAL HISTORY Diagnosis Date Cataract Closed head injury 06/08/2018 Concussion 06/08/2018 PAST SURGICAL HISTORY Procedure Laterality Date APPENDECTOMY FAMILY HISTORY Problem Relation Age of Onset Kidney Disease Mother dialysis Breast Cancer Mother Thyroid Mother other (Other) Sister half sister Social History Tobacco Use Smoking status: Every Day Packs/day: 0.50 Types: Cigarettes Smokeless tobacco: Never Tobacco comments: Pt has been smoking on & off x 30 years. Substance Use Topics Alcohol use: Yes Comment: once a week to every other week Drug use: Never Past medical history, appointments, medications, allergies reviewed. Pertinent Lab/Diagnostic Studies are reviewed and discussed today Current Outpatient Medications: hydroCHLOROthiazide (HYDRODIURIL, ESIDRIX) 12.5 mg capsule eszopiclone (LUNESTA) 2 mg losartan (COZAAR) 50 mg tablet rosuvastatin (CRESTOR) 10 mg tablet coenzyme Q10 (COQ-10) 30 mg capsule calcium carbonate (CALTRATE) 600 mg calcium (1,500 mg) tab >Zippered Compression Knee High 30-40 mm custom Review of Systems CONSTITUTIONAL: No fevers, chills night sweats, unintended weight loss CARDIOVASCULAR: No chest pain, dyspnea, palpitations, orthopnea, PND, ankle edema. PULM: No dyspnea, unexplained cough. GI: No dysphagia/odynophagia, problematic reflux, constipation, diarrhea, changes in stool habits, hematochezia, melena. : No new urinary complaints, including dysuria, gross hematuria or pyuria. NEURO: No new balance problems, peripheral weakness/paresthesias or numbness of concern. Physical Exam BP 110/56 (BP Site: Left Arm, BP Position: Sitting, BP Cuff Size: Large Adult) Pulse 83 Temp 36.9 C (98.4 F) Resp 12 Ht 165.1 cm (5' 5 ) Wt 81.6 kg (180 lb) SpO2 97% BMI 29.95 kg/m General appearance: Well appearing, alert, in no acute distress, well nourished. Skin: Skin color, texture, turgor normal, no suspicious rashes or lesions Head: Normocephalic, no masses, lesions, tenderness or abnormalities Eyes: Anicteric sclera. Pupils are equally round and reactive to light. Extraocular movements are intact. Lungs: Lungs clear to auscultation. No wheezing, rhonchi, rales Heart: RRR without murmur, gallop, or rubs. Extremities: No deformities, edema, skin discoloration, clubbing or cyanosis. Good capillary refill. ASSESSMENT/PLAN: 1. Primary hypertension - ICD9: 401.9, ICD10: I10 (primary diagnosis) She is better controlled right now. 2. Abnormal finding on urinalysis - ICD9: 791.9, ICD10: R82.90 - URINALYSIS, WITH MICROSCOPIC 3. Mixed hyperlipidemia - ICD9: 272.2, ICD10: E78.2 - good control - Continue current medication. Yanira Burnham MD documented in this encounter [facility] 03-04-2022 Miscellaneous Notes Patient has filled RX. Please call patient regarding refill of Losartan. Patient states she has not heard from pharmacy and usually this is an auto-refill medication. Last prescribed was 12/01/21 for 90 tablets with 1 refill. documented in this encounter [facility] 02-16-2022 History of Present illness Narrative Medicare Yearly Visit Medical B eligibilty date age 65 Date of last exam none in the past year PAST MEDICAL HISTORY Diagnosis Date Cataract Closed head injury 06/08/2018 Concussion 06/08/2018 PAST SURGICAL HISTORY Procedure Laterality Date APPENDECTOMY ALLERGIES: Patient has no known allergies. Medications reviewed: Yes FAMILY HISTORY Problem Relation Age of Onset Kidney Disease Mother dialysis Breast Cancer Mother Thyroid Mother other (Other) Sister half sister SOCIAL HISTORY: Social History Tobacco Use Smoking status: Every Day Packs/day: 0.50 Types: Cigarettes Smokeless tobacco: Never Tobacco comments: Pt has been smoking on & off x 30 years. Substance Use Topics Alcohol use: Yes Comment: once a week to every other week Drug use: Never Vanita likes to walk, gardens a lot. She watches her diet for sodium, low fat and low cholesterol some of the time. List of current specialists seen: she does see a good eye doctor, getting eye treatment done. End of Live Planning discussed including patients advanced directive wishes: Yes I am willing to follow Vanita's advanced directives. PHQ-2 / Depression screen She in the past two weeks denies having felt down, depressed, hopeless, or with little interest or pleasure in doing things. Functional Ability/Safety Screen 1. Was the patient's timed Up and Go test unsteady or longer than 30 seconds? No 2. Does the patient need help with the phone, transportation, shopping,preparing meals, housework, laundry, medications or managing money? No 3. Does your home have rugs in the hallway, lack of grab bars in the bathroom, lack of handrails on the stairs or have poor lighting? No Hearing Evaluation: hard of hearing and normal PHYSICAL EXAM BP 142/82 Pulse 60 Wt 81.6 kg (180 lb) SpO2 98% BMI 29.95 kg/m Alert and oriented X 3: YES Body mass index is 29.95 kg/m . Visual acuity: ASSESSMENT/PLAN: 76 year old female The following prevention plan was discussed during the office visit and provided to the patient: - Lipid panel - Glaucoma screening Yanira Burnham MD. Reason for Visit Patient presents with: CPE (Medicare): From time to time some shortness of breath. BP's seem to be staying up in 140's Immunizations: Flu vaccination Vanita Gutierrez is a 76 year old female who presents here today for Above Complaints.. Health Maintenance PNEUMOCOCCAL: 65+(1 - PCV) DTAP,TDAP,TD(1 - Tdap) SHINGRIX VACCINE(1 of 2) ADVANCE DIRECTIVE DISCUSSION DEPRESSION ASSESSMENT COVID-19 VACCINE(4 - Booster for Pfizer series) INFLUENZA(1) HPI Her blood pressure is on the higher side, she is a little dizzy once live while, when walking she is not always straight, she feels swayed to one side or the other often. She checks her bp at home is in the range of 140. Systolic is 80 to 82. She has swelling of the legs, and is open to take more medication for her bp, janet hctz for her swelling. Has been struggling with insomnia recently after the pandemic. She has no trouble going to sleep she has trouble though staying asleep. She would like to get back on the normal schedule. She is active and she reads a lot. Patient wakes up at 4 every day. Patient says by 5 she is doing much better than before. Patient does not think she is inactive. No problem-specific Assessment & Plan notes found for this encounter. PAST MEDICAL HISTORY Diagnosis Date Cataract Closed head injury 06/08/2018 Concussion 06/08/2018 PAST SURGICAL HISTORY Procedure Laterality Date APPENDECTOMY FAMILY HISTORY Problem Relation Age of Onset Kidney Disease Mother dialysis Breast Cancer Mother Thyroid Mother other (Other) Sister half sister Social History Tobacco Use Smoking status: Every Day Packs/day: 0.50 Types: Cigarettes Smokeless tobacco: Never Tobacco comments: Pt has been smoking on & off x 30 years. Substance Use Topics Alcohol use: Yes Comment: once a week to every other week Drug use: Never Past medical history, appointments, medications, allergies reviewed. Pertinent Lab/Diagnostic Studies are reviewed and discussed today Current Outpatient Medications: losartan (COZAAR) 50 mg tablet rosuvastatin (CRESTOR) 10 mg tablet coenzyme Q10 (COQ-10) 30 mg capsule calcium carbonate (CALTRATE) 600 mg calcium (1,500 mg) tab >Zippered Compression Knee High 30-40 mm custom Review of Systems CONSTITUTIONAL: No fevers, chills night sweats, unintended weight loss CARDIOVASCULAR: No chest pain, dyspnea, palpitations, orthopnea, PND, ankle edema. PULM: No dyspnea, unexplained cough. GI: No dysphagia/odynophagia, problematic reflux, constipation, diarrhea, changes in stool habits, hematochezia, melena. : No new urinary complaints, including dysuria, gross hematuria or pyuria. NEURO: No new balance problems, peripheral weakness/paresthesias or numbness of concern. Physical Exam BP 142/82 Pulse 60 Wt 81.6 kg (180 lb) SpO2 98% BMI 29.95 kg/m General appearance: Well appearing, alert, in no acute distress, well nourished. Skin: Skin color, texture, turgor normal, no suspicious rashes or lesions Head: Normocephalic, no masses, lesions, tenderness or abnormalities Eyes: Anicteric sclera. Pupils are equally round and reactive to light. Extraocular movements are intact. Lungs: Lungs clear to auscultation. No wheezing, rhonchi, rales Heart: RRR without murmur, gallop, or rubs. Extremities: No deformities, edema, skin discoloration, clubbing or cyanosis. Good capillary refill. ASSESSMENT/PLAN: 1. Medicare annual wellness visit, subsequent - ICD9: V70.0, ICD10: Z00.00 (primary diagnosis) - Counseled on healthy diet and regular exercise - Calcium intake with supplements or by diet of 1000 mg/day for under 50, 8055-5610 mg/day for 50+ 2. Need for influenza vaccination - ICD9: V04.81, ICD10: Z23 - INFLUENZA SEASONAL QUADRIVALENT HIGH DOSE AGE 65+ - PFIZER-BIONTECH COVID-19 BIVALENT BOOSTER VACCINE, AGE 12+ YR 3. Mixed hyperlipidemia - ICD9: 272.2, ICD10: E78.2 - good control - Continue current medication. 4. Primary hypertension - ICD9: 401.9, ICD10: I10 Adding hctz to her losartan as bp is not well controlled. - Recommended regular aerobic exercise. - Recommend home blood pressure monitoring, to bring results in on next visit - Goal of BP <130/80 - HYDROCHLOROTHIAZIDE 12.5 MG CAPSULE Yanira Burnham MD documented in this encounter [facility] 12-17-2021 Miscellaneous Notes Bp is normal Manual Readin/79 Pulse: 75 Reason for blood pressure check - Last BP elevated and Medication adjustment Patient is: Taking medication as prescribed Yes Took medication today Yes If no, date medication last taken N/A Experiencing side effects No BP was elevated at last appt 12/01/21. Losartan was increased to 50mg daily at that time. Tolerating medication change well. Does report having some increased dizziness; states that it is very random and will be very short in duration. Causes her to feel unsteady. 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 Undergoing treatment currently (OTC drops). Home readings have ranged 120-153/67-95. Denies any chest pain, shortness of breath, or headaches. Daily caffeine use. Current everyday tobacco use. Alert and oriented. Pt has been identified by name and birthdate: Yes Allergies reviewed: Yes Latex allergy: no. Medication - prescribed and OTC reviewed and updated: Yes Do you need any prescription refills prior to your next visit: No Health Maintenance: Reviewed and not up to date and provider notified Patient advised to continue with current medications and would be contacted if any further instructions after review by PCP. Jennifer Martinez LPN documented in this encounter [facility] 12-16-2021 History of Present illness Narrative Manual Readin/79 Pulse: 75 Reason for blood pressure check - Last BP elevated and Medication adjustment Patient is: Taking medication as prescribed Yes Took medication today Yes If no, date medication last taken N/A Experiencing side effects No BP was elevated at last appt 12/01/21. Losartan was increased to 50mg daily at that time. Tolerating medication change well. Does report having some increased dizziness; states that it is very random and will be very short in duration. Causes her to feel unsteady. 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 Undergoing treatment currently (OTC drops). Home readings have ranged 120-153/67-95. Denies any chest pain, shortness of breath, or headaches. Daily caffeine use. Current everyday tobacco use. Alert and oriented. Pt has been identified by name and birthdate: Yes Allergies reviewed: Yes Latex allergy: no. Medication - prescribed and OTC reviewed and updated: Yes Do you need any prescription refills prior to your next visit: No Health Maintenance: Reviewed and not up to date and provider notified Patient advised to continue with current medications and would be contacted if any further instructions after review by PCP. Jennifer Martinez LPN documented in this encounter [facility] 12-03-2021 Miscellaneous Notes Letter mailed to pt home of results. Kalina Phelan MA ----- Message from Nubia Abdul APRN.CNP sent at 12/03/2021 9:58 AM EDT ----- Please let patient know her vitamin D, thyroid, and Vit B12 are all normal. Take care Nubia Abdul APRN.CNP documented in this encounter [facility] 12-01-2021 History of Present illness Narrative CC: Patient presents with: Blood Pressure HPI Vanita Gutierrez is a 76 year old female who presents today for hypertension follow up but is concerned with being tired during the day and having difficulty sleeping. HTN and HLD: Ms. Gutierrez indicates that she is feeling well and denies any symptoms referable to elevated blood pressure. Specifically denies headache, chest pain, palpitations, dyspnea, exercise intolerance and peripheral edema. Patient denies any side effects of her medication(s) and is compliant with their regimen. She does check BP's away from this office with average BP's in the 140/70s range does have some normal readings but more often in the 140s. Vanita works out regularly 3 times per week with walking and gardening. She watches her diet for sodium, low fat and low cholesterol most of the time. Last 3 Encounter BP Readings: Date: BP: 12/01/2021 144/82 11/04/2021 128/70 10/17/2021 144/80 Has been tired and having difficulty staying asleep. Goes to be at 1030 without difficulty falling asleep, but then is up at 330AM and unable to fall back asleep. Is ready for a nap by noon. Has been occurring over the last few months. Does not happen every night but usually 4/7 nights a week. Drinks coffee in the AM but not any other time during the year. No other changes in bedtime routine, diet, medications, or activity. Also at end of visit mentioned intermittent dizziness, with bending forward and then standing up. Denies any syncope, weakness, abnormal headaches, or falls. REVIEW OF SYSTEMS General: no fevers, no chills, no night sweats, no recurrent infections, no change in appetite, no change in energy and no significant changes in weight Respiratory: no cough, no wheezing, no shortness of breath, no hemoptysis Cardiovascular: no chest pain, no chest pressure, no palpitations and no swelling GI: No nausea, vomiting, or diarrhea Endocrine: no weight gain, no weight loss, no cold intolerance, no heat intolerance, no polyuria, no polyphagia and no polydipsia Neurologic: No headache, weakness, memory loss, syncope. PAST MEDICAL HISTORY Diagnosis Date Cataract Closed head injury 06/08/2018 Concussion 06/08/2018 PAST SURGICAL HISTORY Procedure Laterality Date APPENDECTOMY ALLERGIES Patient has no known allergies. MEDICATIONS losartan (COZAAR) 25 mg tablet Take 1 tablet by mouth once daily. rosuvastatin (CRESTOR) 10 mg tablet Take 1 tablet by mouth once daily. coenzyme Q10 (COQ-10) 30 mg capsule Take 1 capsule by mouth once daily. calcium carbonate (CALCIUM 600) 600 mg calcium (1,500 mg) tab Take 0.5 tablets by mouth twice daily. >Zippered Compression Knee High 30-40 mm custom CUSTOM MEASURE FOR KNEE HIGH JER COMPRESSION STOCKINGS, 30-40 MM, WITH ZIPPERS PLEASE. IF UNABLE, PLEASE REFER TO [facility] AT [facility]. DX: EDEMA FAMILY HISTORY Problem Relation Age of Onset Kidney Disease Mother dialysis Breast Cancer Mother Thyroid Mother other (Other) Sister half sister Social History Tobacco Use Smoking status: Current Every Day Smoker Packs/day: 0.50 Types: Cigarettes Smokeless tobacco: Never Used Tobacco comment: Pt has been smoking on & off x 30 years. Substance Use Topics Alcohol use: Yes Comment: once a week to every other week Drug use: Never PHYSICAL EXAM BP 144/82 Pulse 66 Resp 16 Wt 80.3 kg (177 lb) BMI 29.45 kg/m General Appearance: well appearing, in no acute distress, alert Skin: Skin color, texture, turgor normal for age; Eyes: PERRLA, EOM's intact, conjunctiva pink and moist, no icterus, sclera white, non-injected Neck: Thyroid normal size and symmetric without palpable nodules, No adenopathy Lymph nodes: No cervical lymphadenopathy, No supraclavicular lymphadenopathy, No axillary lymphadenopathy. and No inguinal lymphadenopathy. Lungs: Lungs clear to auscultation. No wheezing, rhonchi, rales. Heart: RRR without murmur, gallop, or rubs. No ectopy BUE Extremities: No deformities, edema, skin discoloration, clubbing or cyanosis. Good capillary refill. Health maintenance reviewed with patient: PNEUMOCOCCAL: 65+(1 - PCV) Never done DEPRESSION SCREENING Never done DTAP,TDAP,TD(1 - Tdap) Never done SHINGRIX VACCINE(1 of 2) Never done ADVANCE DIRECTIVE DISCUSSION Never done COVID-19 VACCINE(4 - Booster for Pfizer series) due on 12/12/2021 INFLUENZA(1) due on 01/01/2022 DIABETES SCREEN due on 11/18/2024 BONE DENSITY Completed HEPATITIS C SCREENING Completed DATA REVIEWED: Most recent labs ASSESSMENT/PLAN: 1. Primary hypertension - ICD9: 401.9, ICD10: I10 (primary diagnosis) - suboptimal control - increasing cozaar - Encouraged dietary sodium restriction/DASH diet - Recommended regular aerobic exercise. - Recommend home blood pressure monitoring, to bring results in on next visit - Goal of BP <130/80 2. Fatigue, unspecified type - ICD9: 780.79, ICD10: R53.83 - discussed using OTC low dose melatonin to try and help retrain her sleep cycle - TSH BLD - VITAMIN B12 BLOOD 3. Dizziness - ICD9: 780.4, ICD10: R42 - mainly occurs with bending over, will discuss this and evaluate further at follow up - follow up earlier if any increase or change in dizziness. - TSH BLD - VITAMIN B12 BLOOD 4. Mixed hyperlipidemia - ICD9: 272.2, ICD10: E78.2 - good control - Continue current medication. - Encouraged following a low fat, low cholesterol diet. - Discussed the benefits of regular aerobic exercise and weight loss. 5. Prediabetes - ICD9: 790.29, ICD10: R73.03 - controlled, A1c 5.7 - continue with healthy diet choices and walking 6. Vitamin D deficiency - ICD9: 268.9, ICD10: E55.9 - VITAMIN D 25 HYDROXY Prescription instructions reviewed with patient as applicable. Potential red flag symptoms discussed with the patient. Reviewed appropriate action plan to take if red flag symptoms occur. Patient agreeable to treatment plan. Nubia Abdul APRN.RONALDO documented in this encounter [facility] 11-04-2021 History of Present illness Narrative Manual Readin/70 Pulse: 72 Reason for blood pressure check - Medication adjustment Patient is: Taking medication as prescribed Yes Took medication today Yes If no, date medication last taken N/A Experiencing side effects No BP was elevated at last appt 10/17/21. Lisinopril was d/c at that time d/t cough. She was started on Losartan and tolerating medication well. States that cough has improved but still notices it. Denies any chest pain, shortness of breath, or headaches. Does have some dizziness with quick positional changes. Daily caffeine use. Current everyday tobacco use. Alert and oriented. Pt has been identified by name and birthdate: Yes Allergies reviewed: Yes Latex allergy: no. Medication - prescribed and OTC reviewed and updated: Yes Do you need any prescription refills prior to your next visit: No Health Maintenance: Reviewed and not up to date and provider notified Patient advised to continue with current medications and would be contacted if any further instructions after review by PCP. Jennifer Martinez LPN documented in this encounter [facility] 10-17-2021 History of Present illness Narrative CC Patient presents with: Recheck: BP follow up HPI Vanita Gutierrez is a 76 year old female who presents to the office for blood pressure. Her visit today is for follow-up. Patient was last seen for this approximately 6 weeks ago. Medication changes: No Taking all medications as prescribed: Yes Side effects: Yes dry cough Home BP's: Yes 130s-140s/80s Denies: headache, chest pain, palpitations, dyspnea. Does have chronic dependant edema to bilateral ankle, but is relieved with elevating legs Last 4 Encounter BP Readings: Date: BP: 10/17/2021 144/80 08/12/2021 128/72 04/15/2021 150/78 02/03/2021 142/78 Last 3 Encounter Wt Readings: Date: Wt: 10/17/2021 79.8 kg (176 lb) 08/12/2021 81.2 kg (179 lb) 04/15/2021 82.1 kg (181 lb) Exercise: works out regularly 2 times per week with walking and yard work. Diet: Watch for salt, fat, cholesterol: Yes . Caffeine: 3 cups a day Water intake: 1.5 liters a day Alcohol intake: less than 1 drink at night . Smoking: yes but has decreased to 4 cigarrettes a day Frequent NSAID use: Yes takes ibuprofen daily. REVIEW OF SYSTEMS General: no fevers, no chills, no night sweats, no recurrent infections, no change in appetite, no change in energy and no significant changes in weight Respiratory: no wheezing, no shortness of breath, no hemoptysis Cardiovascular: no chest pain, no chest pressure, no palpitations and no current swelling Neurologic: No headache, weakness, numbness, tingling, neck stiffness, tremor, vertigo, dizziness, memory loss, syncope. PAST MEDICAL HISTORY Diagnosis Date Cataract Closed head injury 06/08/2018 Concussion 06/08/2018 PAST SURGICAL HISTORY Procedure Laterality Date APPENDECTOMY ALLERGIES Patient has no known allergies. MEDICATIONS lisinopril (ZESTRIL, PRINIVIL) 5 mg tablet Take 1 tablet by mouth once daily. rosuvastatin (CRESTOR) 10 mg tablet Take 1 tablet by mouth once daily. coenzyme Q10 (COQ-10) 30 mg capsule Take 1 capsule by mouth once daily. calcium carbonate (CALCIUM 600) 600 mg calcium (1,500 mg) tab Take 0.5 tablets by mouth twice daily. >Zippered Compression Knee High 30-40 mm custom CUSTOM MEASURE FOR KNEE HIGH JER COMPRESSION STOCKINGS, 30-40 MM, WITH ZIPPERS PLEASE. IF UNABLE, PLEASE REFER TO [facility] AT [facility]. DX: EDEMA FAMILY HISTORY Problem Relation Age of Onset Kidney Disease Mother dialysis Breast Cancer Mother Thyroid Mother other (Other) Sister half sister Social History Tobacco Use Smoking status: Current Every Day Smoker Packs/day: 0.50 Types: Cigarettes Smokeless tobacco: Never Used Tobacco comment: Pt has been smoking on & off x 30 years. Substance Use Topics Alcohol use: Yes Comment: once a week to every other week Drug use: Never PHYSICAL EXAM BP 144/80 Pulse 66 Resp 16 Wt 79.8 kg (176 lb) BMI 29.29 kg/m General Appearance: well appearing, in no acute distress, alert Lungs: Lungs clear to auscultation. No wheezing, rhonchi, rales. Heart: RRR without murmur, gallop, or rubs. No ectopy DATA REVIEWED: No new labs ASSESSMENT/PLAN: 1. Primary hypertension - ICD9: 401.9, ICD10: I10 (primary diagnosis) - suboptimal control - will switch to cozaar and stop lisinopril - Encouraged dietary sodium restriction/DASH diet - Recommended regular aerobic exercise. - Recommend home blood pressure monitoring, to bring results in on next visit - Goal of BP <130/80 - Patient counselled on smoking cessation. - COMP METABOLIC PANEL - CBC + DIFF - Stop using daily ibuprofen. Try tylenol instead - 2 week nurse BP check and 6 week in office check 2. Mixed hyperlipidemia - ICD9: 272.2, ICD10: E78.2 - to be determined upon return of lab results - Encouraged following a low fat, low cholesterol diet. - Discussed the benefits of regular aerobic exercise and weight loss. - LIPID PANEL BASIC - COMP METABOLIC PANEL 3. Prediabetes - ICD9: 790.29, ICD10: R73.03 - COMP METABOLIC PANEL - HGB A1C Prescription instructions reviewed with patient as applicable. Potential red flag symptoms discussed with the patient. Reviewed appropriate action plan to take if red flag symptoms occur. Patient agreeable to treatment plan Nubia Abdul APRN.RONALDO documented in this encounter [facility] 09-05-2021 Miscellaneous Notes Phoned patient and provider message and orders reviewed. Patient verbalizes understanding. Follow up appointment scheduled for 10/16/2021. Sanna Ascencio RN Start Lisinopril 5 mg daily. Follow-up with Dr. Burnham in 6 weeks Teodora Abdul APRN.RONALDO Patient calls to report blood pressure readings from the past couple of weeks as discussed at last OV: All results were taken between 6 am and 8 am with a wrist cuff: 08/15 146/93 08/24 161/82 08/16 138/87 08/25 152/86 08/17 148/95 08/26 146/74 08/18 151/96 08/27 155/89 08/19 153/88 08/28 158/92 08/20 153/88 08/29 148/96 08/21 148/96 08/30 159/79 08/22 148/89 09/04 166/84 08/23 126/90 09/05 155/98 Patient not currently taking blood pressure medication. Symptoms include: tired, fatigue, lethargy, occasional episodes of dizziness (patient reports when it happens if she sits down it subsides and usually only lasts a couple of minutes), mild headache last night with OTC ibuprofen taken with positive results. Denies chest pain, SOB, or blurred vision. Please review and advise, Sanna Ascencio RN documented in this encounter [facility] 08-15-2021 Miscellaneous Notes Detailed message left with patient Julieta Stacy Ma Please call patient per below request, to let her know her medication has been sent. The following approved medication requests have been transmitted electronically. Signed Prescriptions Disp Refills rosuvastatin (CRESTOR) 10 mg tablet 90 tablet 1 Sig: Take 1 tablet by mouth once daily. CHELSEA: No Authorizing Provider: YANIRA BURNHAM Ordering User: GISSELLE BARKER APRN.IMAGING NURSE Patient has been identified by name and date of : Yes Pending Prescriptions Disp Refills ROSUVASTATIN 10 MG TABLET 90 tablet 1 Sig: Take 1 tablet by mouth once daily. CHELSEA: No RX INSTRUCTIONS: Per patient, She is taking one tablet daily; she requested 90 days. She needs this weekend. Patient aware RX will be sent to pharmacy. Please call her once submitted today. Jamee Mckenzie Pss documented in this encounter [facility] documented [facility] Diagnosis Primary hypertension- Primary Unspecified essential hypertension [facility] Diagnosis Primary hypertension- Primary Unspecified essential hypertension Fatigue, unspecified type Dizziness Dizziness and giddiness Mixed hyperlipidemia Prediabetes Other abnormal glucose Vitamin D deficiency Unspecified vitamin D deficiency [facility] Diagnosis Medicare annual wellness visit, subsequent- Primary Routine general medical examination at a health care facility Need for influenza vaccination Need for prophylactic vaccination and inoculation against influenza Mixed hyperlipidemia Primary hypertension Unspecified essential hypertension Prediabetes Other abnormal glucose Insomnia, unspecified type [facility] Diagnosis Primary hypertension- Primary Unspecified essential hypertension Abnormal finding on urinalysis Other nonspecific finding on examination of urine Mixed hyperlipidemia [facility] Diagnosis Lytic bone lesions on xray- Primary Disorder of bone and cartilage, unspecified [facility] Diagnosis Lytic bone lesions on xray- Primary Disorder of bone and cartilage, unspecified [facility] Diagnosis Mixed hyperlipidemia- Primary [facility] Diagnosis Primary hypertension- Primary Unspecified essential hypertension Optic neuritis Optic neuritis, unspecified Acute right ankle pain Mixed hyperlipidemia [facility] Diagnosis Acute right ankle pain- Primary documented in this encounter [facility] note* Diagnosis Right ankle pain, unspecified chronicity- Primary Primary hypertension Unspecified essential hypertension Prediabetes Other abnormal glucose documented in this encounter [facility] note* Diagnosis Posterior tibial tendon dysfunction- Primary Other disorders of synovium, tendon, and bursa documented in this encounter [facility] for referral (narrative)* Diagnostic Procedure Only (Routine) - Authorized Specialty Diagnoses / Procedures Referred By Contac t Referred To Contact XR IMAGING Diagnoses Lytic bone lesions on xray Procedures XR BONE SURVEY ROUTINE RADIOLOGIC EXAMINATION OSSEOUS SURVEY COMPL Colby Briggs DO [address] [place] [address] Xr Imaging Referral ID Status Reason Start Date Expiration Date Visits Requested Visits Authorized [id number] Authorized Auto-Generat ed Referral 09/10/2022 10/10/2023 1 1 [facility] for referral (narrative)* Diagnostic Procedure Only (Routine) - Closed Specialty Diagnoses / Procedures Referred By Contac t Referred To Contact XR IMAGING Diagnoses Acute right ankle pain Procedures XR ANKLE GENERAL 3V AP/LAT/OBL RIGHT RADEX ANKLE COMPLETE MINIMUM 3 VIEWS Nubia Abudl APRN.IMAGING NURSE [address] [place] [address] [place] [address] Referral ID Status Reason Start Date Expiration Date V isits Requested Visits Authorized [id number] Closed Auto-Generate d Referral 12/21/2022 01/20/2024 1 1 * Consult, Test, Treat (Routine) - Pending Review Specialty Diagnoses / Procedures Referred By Contac t Referred To Contact Neurology Diagnoses Optic neuritis Procedures CONSULT TO NEUROLOGY OFFICE/OUTPATIENT [facility] 60-74 MINUTES Nubia Abdul APRN.IMAGING NURSE [address] [place] [address] Referral ID Status Reason Start Date Expiration Date Visits Requested Visits Authorized [id number] Pending Review PCP Requested Referral 12/21/2022 12/21/2023 1 1 [facility] Reason for Referral Specialty Diagnoses / Procedures Referred By Contac t Referred To Contact Podiatry Diagnoses Acute right ankle pain Procedures CONSULT TO PODIATRY OFFICE/OUTPATIENT NEW HIGH MDM 60-74 MINUTES Nubia Abdul APRN.CNP [address] [place] [address] Referral ID Status Reason Start Date Expiration Date Visits Requested Visits Authorized [id number] Pending Review PCP Requested Referral 12/28/2022 12/28/2023 1 1 Specialty Diagnoses / Procedures Referred By Contac deanna Referred To Contact Podiatry Diagnoses Right ankle pain, unspecified chronicity Procedures CONSULT TO PODIATRY OFFICE/OUTPATIENT NEW HIGH MDM 60 MINUTES Ely Au PA-C [address] [place] [address] Referral ID Status Reason Start Date Expiration Date Visits Requested Visits Authorized [id number] Authorized PCP Requested Referral 06/11/2023 06/10/2024 1 1 Summary Purpose Family History No Family History Records Found Advance Directives No Advanced Directives Records Found Additional Source Comments Source Comments (unrecognize d section and content) In the event this informatio n is protected by the Federal Confidentiality of Alcohol and Drug Abuse Patient Records regulations: The Federal rules restrict any use of the information to criminally investigate or prosecute any alcohol or drug abuse patient.[facility] the event this information is protected by the Federal Confidentiality of Alcohol and Drug Abuse Patient Records regulations: The Federal rules restrict any use of the information to criminally investigate or prosecute any alcohol or drug abuse patient.[facility] the event this information is protected by the Federal Confidentiality of Alcohol and Drug Abuse Patient Records regulations: The Federal rules restrict any use of the information to criminally investigate or prosecute any alcohol or drug abuse patient.[facility] the event this information is protected by the Federal Confidentiality of Alcohol and Drug Abuse Patient Records regulations: The Federal rules restrict any use of the information to criminally investigate or prosecute any alcohol or drug abuse patient.[facility] the event this information is protected by the Federal Confidentiality of Alcohol and Drug Abuse Patient Records regulations: The Federal rules restrict any use of the information to criminally investigate or prosecute any alcohol or drug abuse patient.[facility] the event this information is protected by the Federal Confidentiality of Alcohol and Drug Abuse Patient Records regulations: The Federal rules restrict any use of the information to criminally investigate or prosecute any alcohol or drug abuse patient.[facility] the event this information is protected by the Federal Confidentiality of Alcohol and Drug Abuse Patient Records regulations: The Federal rules restrict any use of the information to criminally investigate or prosecute any alcohol or drug abuse patient.[facility] the event this information is protected by the Federal Confidentiality of Alcohol and Drug Abuse Patient Records regulations: The Federal rules restrict any use of the information to criminally investigate or prosecute any alcohol or drug abuse patient.[facility] the event this information is protected by the Federal Confidentiality of Alcohol and Drug Abuse Patient Records regulations: The Federal rules restrict any use of the information to criminally investigate or prosecute any alcohol or drug abuse patient.[facility] the event this information is protected by the Federal Confidentiality of Alcohol and Drug Abuse Patient Records regulations: The Federal rules restrict any use of the information to criminally investigate or prosecute any alcohol or drug abuse patient.[facility] the event this information is protected by the Federal Confidentiality of Alcohol and Drug Abuse Patient Records regulations: The Federal rules restrict any use of the information to criminally investigate or prosecute any alcohol or drug abuse patient.[facility] the event this information is protected by the Federal Confidentiality of Alcohol and Drug Abuse Patient Records regulations: The Federal rules restrict any use of the information to criminally investigate or prosecute any alcohol or drug abuse patient.[facility] the event this information is protected by the Federal Confidentiality of Alcohol and Drug Abuse Patient Records regulations: The Federal rules restrict any use of the information to criminally investigate or prosecute any alcohol or drug abuse patient.[facility] CenterIn the event this information is protected by the Federal Confidentiality of Alcohol and Drug Abuse Patient Records regulations: The Federal rules restrict any use of the information to criminally investigate or prosecute any alcohol or drug abuse patient.[facility] CenterIn the event this information is protected by the Federal Confidentiality of Alcohol and Drug Abuse Patient Records regulations: The Federal rules restrict any use of the information to criminally investigate or prosecute any alcohol or drug abuse patient.[facility] CenterIn the event this information is protected by the Federal Confidentiality of Alcohol and Drug Abuse Patient Records regulations: The Federal rules restrict any use of the information to criminally investigate or prosecute any alcohol or drug abuse patient.[facility] CenterIn the event this information is protected by the Federal Confidentiality of Alcohol and Drug Abuse Patient Records regulations: The Federal rules restrict any use of the information to criminally investigate or prosecute any alcohol or drug abuse patient.[facility] CenterIn the event this information is protected by the Federal Confidentiality of Alcohol and Drug Abuse Patient Records regulations: The Federal rules restrict any use of the information to criminally investigate or prosecute any alcohol or drug abuse patient.[facility] CenterIn the event this information is protected by the Federal Confidentiality of Alcohol and Drug Abuse Patient Records regulations: The Federal rules restrict any use of the information to criminally investigate or prosecute any alcohol or drug abuse patient.[facility] CenterIn the event this information is protected by the Federal Confidentiality of Alcohol and Drug Abuse Patient Records regulations: The Federal rules restrict any use of the information to criminally investigate or prosecute any alcohol or drug abuse patient.[facility] CenterIn the event this information is protected by the Federal Confidentiality of Alcohol and Drug Abuse Patient Records regulations: The Federal rules restrict any use of the information to criminally investigate or prosecute any alcohol or drug abuse patient.[facility] CenterIn the event this information is protected by the Federal Confidentiality of Alcohol and Drug Abuse Patient Records regulations: The Federal rules restrict any use of the information to criminally investigate or prosecute any alcohol or drug abuse patient.[facility] CenterIn the event this information is protected by the Federal Confidentiality of Alcohol and Drug Abuse Patient Records regulations: The Federal rules restrict any use of the information to criminally investigate or prosecute any alcohol or drug abuse patient.[facility] CenterIn the event this information is protected by the Federal Confidentiality of Alcohol and Drug Abuse Patient Records regulations: The Federal rules restrict any use of the information to criminally investigate or prosecute any alcohol or drug abuse patient.[facility] CenterIn the event this information is protected by the Federal Confidentiality of Alcohol and Drug Abuse Patient Records regulations: The Federal rules restrict any use of the information to criminally investigate or prosecute any alcohol or drug abuse patient.[facility] CenterIn the event this information is protected by the Federal Confidentiality of Alcohol and Drug Abuse Patient Records regulations: The Federal rules restrict any use of the information to criminally investigate or prosecute any alcohol or drug abuse patient.[facility] Reason for Visit (unrecogniz ed section and content) Reason Comments Patient Update Reason Comments Recheck BP follow up Reason Comments Blood Pressure Check Reason Comments Refill Request Reason Comments Blood Pressure Reason Comments Results Reason Onset Date Comments CPE (Medicare) From time to andrea e some shortness of breath. BP's seem to be staying up in 140's Immunizations 02/16/2022 Flu vaccination Reason Comments Patient Question Medication Problem Reason Comments Follow Up elevated blood press ure and meds Reason Onset Date Comments Refill Request 05/05/2022 Reason Comments Appointment Reason Onset Date Comments Population Health Navigation Outreach 10/01/2022 [place] care gap Reason Comments Established Patient Reason Comments Follow Up Reason Onset Date Comments Refill Request Refill Request 11/06/2022 Reason Comments Appointment Reason Comments Recheck 6 month follow up, r eview labs Reason Comments Patient Request Reason Comments Xray Result Reason Comments F/U 6 months c/o right ankle pain since x 1year, elevated BP Reason Comments New Pain Specialty Diagnoses / Procedures Referred By Contac t Referred To Contact Podiatry Diagnoses Right ankle pain, unspecified chronicity Procedures CONSULT TO PODIATRY OFFICE/OUTPATIENT NEW HIGH MDM 60 MINUTES Ely Au PA-C [address] [place] [address] Referral ID Status Reason Start Date Expiration Date V isits Requested Visits Authorized [id number] Closed PCP Requested Referral 06/11/2023 06/10/2024 1 1 Care Teams (unrecognized sec tion and content) Ski Lift Attendant Relationship Specialty Start Date End Date Yanira Burnham MD [address] [place] [address] PCP - General Internal Medicine 09/20/18 Ski Lift Attendant Relationship Specialty Start Date End Date Yanira Burnham MD [address] [place] [address] PCP - General Internal Medicine 09/20/18 Ski Lift Attendant Relationship Specialty Start Date End Date Yanira Burnham MD [address] [place] [address] PCP - General Internal Medicine 09/20/18 Ski Lift Attendant Relationship Specialty Start Date End Date Yanira Burnham MD [address] [place] [address] PCP - General Internal Medicine 09/20/18 Ski Lift Attendant Relationship Specialty Start Date End Date Yanira Burnham MD [address] [place] [address] PCP - General Internal Medicine 09/20/18 Ski Lift Attendant Relationship Specialty Start Date End Date Yanira Burnham MD [address] [place] [address] PCP - General Internal Medicine 09/20/18 Ski Lift Attendant Relationship Specialty Start Date End Date Yanira Burnham MD [address] [place] [address] PCP - General Internal Medicine 09/20/18 Ski Lift Attendant Relationship Specialty Start Date End Date Yanira Burnham MD [address] [place] [address] PCP - General Internal Medicine 09/20/18 Ski Lift Attendant Relationship Specialty Start Date End Date Yanira Burnham MD [address] [place] [address] PCP - General Internal Medicine 09/20/18 Ski Lift Attendant Relationship Specialty Start Date End Date Yanira Burnham MD [address] [place] [address] PCP - General Internal Medicine 09/20/18 Ski Lift Attendant Relationship Specialty Start Date End Date Yanira Burnham MD [address] [place] [address] PCP - General Internal Medicine 09/20/18 Ski Lift Attendant Relationship Specialty Start Date End Date Yanira Burnham MD [address] [place] [address] PCP - General Internal Medicine 09/20/18 Ski Lift Attendant Relationship Specialty Start Date End Date Yanira Burnham MD [address] [place] [address] PCP - General Internal Medicine 09/20/18 Ski Lift Attendant Relationship Specialty Start Date End Date Yanira Burnham MD [address] [place] [address] PCP - General Internal Medicine 09/20/18 Ski Lift Attendant Relationship Specialty Start Date End Date Yanira Burnham MD [address] [place] [address] PCP - General Internal Medicine 09/20/18 Ski Lift Attendant Relationship Specialty Start Date End Date Yanira Burnham MD [address] [place] [address] PCP - General Internal Medicine 09/20/18 INFORMATION SOURCE (unrecogn ized section and content) FOR RECORDS PERTAINING TO PATIENTS WHO ARE OR HAVE BEEN ENROLLED IN A CHEMICAL DEPENDENCY/SUBSTANCEABUSE PROGRAM, SOME INFORMATION MAY BE OMITTED. This clinical summary was aggregated from multiple sources. Caution should be exercised in using it in the provision of clinical care. This summary normalizes information from multiple sources, and as a consequence, information in this document may materially change the coding, format and clinical context of patient data. In addition, data may be omitted in some cases. CLINICAL DECISIONS SHOULD BE BASED ON THE PRIMARY CLINICAL RECORDS. [facility]. provides no warranty or guarantee of the accuracy or completeness of information in this document.
== END | disposition home or self-care (01) ==
LOC: SL 12:30
PROVIDERS: PCP Internal Medicine; Referring Provider Psychiatry & Neurology Neurology; Visit Provider Psychiatry & Neurology Neurology
DX: G47.10 Hypersomnia, unspecified (principal)
CPT/HCPCS: 95806

== ENCOUNTER → 2023-10-19 | Outpatient (CLI) | payer MEDICARE, SELFPAY ==
[2023-10-19 17:53] LABS: Potassium 3.4 mmol/L (3.5-5.1)
== END | disposition home or self-care (01) ==
LOC: MTLAB 15:35
PROVIDERS: PCP Internal Medicine; Referring Provider Psychiatry & Neurology Neurology; Visit Provider Psychiatry & Neurology Neurology
DX: E87.6 Hypokalemia (principal)
CPT/HCPCS: 36415; 84132

== ENCOUNTER → 2023-11-16 | Outpatient (CLI) | payer MEDICARE, SELFPAY ==
[2023-11-16 12:12] LABS: Potassium 4.1 mmol/L (3.5-5.1)
== END | disposition home or self-care (01) ==
LOC: MTLAB 10:34
PROVIDERS: PCP Internal Medicine; Referring Provider Psychiatry & Neurology Neurology; Visit Provider Psychiatry & Neurology Neurology
DX: E87.6 Hypokalemia (principal)
CPT/HCPCS: 36415; 84132

== ENCOUNTER → 2024-02-21 | Outpatient (CLI) | payer MEDICARE, SELFPAY | END | disposition home or self-care (01) | PROVIDERS: PCP Internal Medicine; Referring Provider Psychiatry & Neurology Neurology; Visit Provider Psychiatry & Neurology Neurology | DX: R26.9 Unspecified abnormalities of gait and mobility (principal) | CPT/HCPCS: 36415 ==

== ENCOUNTER → 2025-03-19 | Outpatient (CLI) | payer MEDICARE, SELFPAY ==
[2025-03-19 15:29] LABS: Anion Gap 11 (5-15); BUN 13 mg/dL (4-19); BUN/Creat Ratio 23.4 RATIO (10-20); Calcium,Total 9.7 mg/dL (7.6-11.0); Carbon Dioxide 25.4 mmol/L (21.0-32.0); Chloride 104 mmol/L (98-108); Glucose 122 mg/dL (70-99); Magnesium 2.0 mg/dL (1.5-2.2); Potassium 3.8 mmol/L (3.3-5.1)
[2025-03-22 08:09] LABS: ANTINUCLEAR ANTIBODIES DIRECT Negative (Negative)
== END | disposition home or self-care (01) ==
LOC: MTLAB 13:09
PROVIDERS: PCP Internal Medicine; Referring Provider Psychiatry & Neurology Neurology; Visit Provider Psychiatry & Neurology Neurology
DX: R25.2 Cramp and spasm (principal); R68.2 Dry mouth, unspecified; H04.123 Dry eye syndrome of bilateral lacrimal glands
CPT/HCPCS: 36415; 80048; 83735; 86038; 86225; 86235